=== PATIENT | male | born 1975 | race African-American/Black ===

== ENCOUNTER 2019-09-02 18:07 | Emergency (ER) | payer OTHER ==
[~2019-09-02] VITALS: Ht 180.3 cm; Wt 83.9 kg
[2019-09-02] MEDS ORDERED: GLIPIZIDE 10 MG10 MG PO (18:39)
[2019-09-02] MEDS ORDERED: DORYX MPC120 MG PO (18:41)
[2019-09-02] MEDS ORDERED: GLUCOPHAGE1000 MG PO (18:42)
[2019-09-02] MEDS ORDERED: ZOFRAN ODT4 MG PO (21:08)
[2019-09-02 21:20] VITALS: BP 140/97
== END 2019-09-02 21:20 | disposition home or self-care (01) ==
LOC: ER 18:07
DX: J18.9 Pneumonia, unspecified organism (principal); E11.9 Type 2 diabetes mellitus without complications

== ENCOUNTER 2019-09-26 12:16 | Inpatient (IN) | payer OTHER ==
[~2019-09-26] VITALS: Ht 180.3 cm; Wt 83.2 kg
--- NOTE | ~2019-09-26 | HC ---
[facility] [place] [address] [place] [address] CONSULTATION Name: TOD RODRIGUEZ Room #: 350-P ADM IN M.R.#: [id number] Admission: 09/26/19 Attend Phys: Juan M Johnston MD Discharge: Date of : 79 Report #: [id number] THIS REPORT FOR: cc: MARISEL LAMA - Family physician unknown Ana Grover MD ~ CC: Juan M ARTEAGA unknown MARISEL LAMA DATE OF SERVICE: 09/28/2019 REASON FOR CONSULTATION: Elevated potassium, hyponatremia. REASON FOR PRESENTATION: Swelling, progressive shortness of breath, elevated blood sugar. HISTORY OF PRESENT ILLNESS: This is a 44-year-old with past medical history of diabetes mellitus for some time. He is also known to have hypertension. He presented with significant bilateral lower extremity swelling, worsening blood sugar reading, worsening dyspnea on exertion. He was found to have hyponatremia with hyperkalemia and significantly elevated blood sugar. He is not aware of any prior knowledge of kidney problems. He was diagnosed with diabetes mellitus 10 years ago. It looks like there is an issue of noncompliance. He suffers from hidradenitis that is following a course of waxing and waning course. He has required some drainage in the past. I am being consulted to manage the patient electrolyte issues. He has been taking some ibuprofen recently. He is maintained on doxycycline for his hidradenitis. PAST MEDICAL HISTORY: 1. Hidradenitis. 2. Diabetes mellitus. ALLERGIES: None. SOCIAL HISTORY: Denies drug or alcohol abuse. REVIEW OF SYSTEMS: GENERAL: Significant for weakness. No fever or chills. CARDIOVASCULAR: Dyspnea on exertion and swelling. PULMONARY: Dyspnea on exertion. GASTROINTESTINAL: No nausea or vomiting. GENITOURINARY: No frequency, no urgency. SKIN: As per the history of present illness. FAMILY HISTORY: Significant for diabetes. [facility] [address] [place] [address] CONSULTATION Name: TOD RODRIGUEZ Room #: 350-P [facility] IN .R.#: [id number] Admission: 09/26/19 Attend Phys: Juan M Johnston MD Discharge: Date of : 79 Report #: [id number] MEDICATIONS: 1. Metformin. 2. Glipizide. 3. Furosemide. PHYSICAL EXAMINATION: He is alert, oriented, in no apparent distress. VITAL SIGNS: Blood pressure is 112/79, temperature 36.5. HEAD AND NECK: No jugular venous distention. CHEST: No crackles. CARDIOVASCULAR: No rub detected. ABDOMEN: Soft, nontender. LOWER EXTREMITIES: Extensive edema. Gluteal areas extensive hidradenitis and thickening. LABORATORY DATA: Reviewed. White blood cell count is 20. Chemistry from today revealed a sodium of 130, BUN of 34, creatinine of 1.3. Serum albumin is 2.0. Renal ultrasound is negative. ASSESSMENT, IMPRESSION AND PLAN: 1. Hyponatremia. 2. Hyperkalemia. 3. Fluid overload. 4. Uncontrolled diabetes mellitus. 5. We will continue with the Lasix for now. 6. His pseudohyponatremia was due to his high blood sugar. His hyperkalemia had resolved. Ultimately, we will need to be on an angiotensin receptor juan miguel and a thiazide diuretic. The patient fluid overload is unlikely to be due to diabetic nephropathy given the urine finding. Pending cardiac echo. By: 0817 0849 Ana Grover MD /nt
--- NOTE | ~2019-09-26 | HC ---
[facility] [place] [address] [place] [address] CONSULTATION Name: TOD RODRIGUEZ Room #: 350-P ADM IN M.R.#: [id number] Admission: 09/26/19 Attend Phys: Juan M Johnston MD Discharge: Date of : 79 Report #: [id number] THIS REPORT FOR: cc: MARISEL LAMA - Family physician unknown Zeeshan Johnson MD ~ CC: Juan M ARTEAGA unknown MARISEL LAMA DATE OF SERVICE: 09/27/2019 WOUND CARE CONSULT NOTE REASON FOR CONSULTATION: Hidradenitis of right and left hip with draining pus. 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 He has had progressive shortness of breath for the past few months. He smokes about a pack of cigarettes a day. The patient is diabetic, but does not check his blood sugars. Laboratories show white blood count of 14.7 yesterday and 19.2 today. Blood glucose elevated greater than 500 today. The patient has a history of hidradenitis of the hips and buttocks with multiple excisions in the past. The patient states that an area of hidradenitis of the right hip is sore with some drainage and on his left hip a larger area, which is more sore, draining more pus. Wound care is consulted due to his hidradenitis wound. MEDICAL PROBLEMS: Diabetes mellitus type 2; atypical pneumonia, actively being treated now; congestive heart failure; hyperglycemia; chronic hidradenitis. ALLERGIES: No known drug allergies. MEDICATIONS: The patient is currently on IV ceftriaxone, Lasix, Humulin insulin, albuterol, Coreg, Humalog insulin, lisinopril, Zofran, hydrocodone. SOCIAL HISTORY: The patient is a 1 pack a day smoker. PAST SURGICAL HISTORY: Multiple surgeries for hidradenitis excision of the hips and buttocks. PHYSICAL EXAMINATION: GENERAL: Shows a well-appearing -Ukrainian gentleman, middle aged, alert, pleasant, good historian. HEENT: Mucous membranes are moist. NECK: Supple. [facility] [address] [place] [address] CONSULTATION Name: TOD RODRIGUEZ Room #: 350-P ADM IN M.R.#: [id number] Admission: 09/26/19 Attend Phys: Juan M Johnston MD Discharge: Date of : 79 Report #: [id number] LUNGS: Respirations unlabored. ABDOMEN: Soft. EXTREMITIES: Examination of the extremities shows scars and indurations of his right and left medial buttock from hidradenitis and prior surgery. Examination of the right lateral hip shows a 5 cm x 2 cm area with slight induration consistent with hidradenitis, very slight amount of pus drained from this area and is slightly tender. Examination of the left hip shows a larger 2 x 7 cm area with slightly raised with induration, chronic hidradenitis, slight pressure on this area resulted in a large amount of yellowish white pus draining. Wound cultures are ordered. Consistent with hidradenitis with abscess. IMPRESSION: 1. Diabetes mellitus type 2, uncontrolled with hyperglycemia. 2. Active pneumonia. 3. Tobaccoism. 4. Acute on chronic hidradenitis with abscessed area of hidradenitis, left hip. PLAN: Wound cultures ordered of purulent drainage of the left hip. Continue ceftriaxone. General surgeon, Dr. Berlin Hoover, consulted for management of hidradenitis, left hip with abscess. By: 0827 [id number] Zeeshan Johnson MD /nt
[~2019-09-26 12:16] MED LIST: DORYX MPC120 MG PO; GLIPIZIDE 10 MG10 MG PO; GLUCOPHAGE1000 MG PO; ZOFRAN ODT4 MG PO
[2019-09-26 12:17] VITALS: BP 155/105
[2019-09-26] MEDS ORDERED: LASIX 40 MG TAB40 MG PO (12:37)
[2019-09-26 13:05] LABS: ABSOLUTE NEUTROPHILS 11.6 thou/uL (1.4-8.2); BASOPHILS 0.6 % (0.0-2.0); EOSINOPHILS 0.5 % (0.0-3.0); HEMATOCRIT 38.4 % (42.0-52.0); LYMPHOCYTES 14.2 % (24.0-44.0); MCH 21.8 pg (26.0-34.0); MCHC 31.2 g/dL (28.0-37.0); MCV 69.7 fL (80.0-100.0); MONOCYTES 5.8 % (1.0-8.0); PLATELET COUNT 371 thou/uL (150-400); POLYS 78.9 % (36.0-66.0); RBC 5.51 mil/uL (4.50-6.00); RDW 19.4 % (10.5-14.5); WBC 14.7 thou/uL (4.0-11.0)
[2019-09-26 13:27] LABS: ANION GAP 6 mmol/L (7-16); BUN 12 mg/dL (7-18); CALCIUM 8.6 mg/dL (8.5-10.1); CHLORIDE 96 mmol/L (98-107); CO2 29 mmol/L (21-32); CREATININE 1.1 mg/dL (0.7-1.3); GLUCOSE 492 mg/dL (74-106); POTASSIUM 4.5 mmol/L (3.5-5.1); SODIUM 131 mmol/L (136-145)
[2019-09-26 13:37] LABS: SGOT 21 U/L (15-37); SGPT 30 U/L (30-65); TOTAL BILIRUBIN 0.3 mg/dL (<0.1-1.0); TROPONIN-I <0.06 ng/mL (<0.06)
[2019-09-26 14:30] VITALS: BP 158/102
--- NOTE | 2019-09-26 14:31 | NUR ---
HAND OFF REPORT SENT TO [facility]W. TELEPHONED THE FLOOR AT THIS TIME TO LET THEM KNOW THAT HANDOFF WAS SENT.
[2019-09-26 15:30] VITALS: BP 138/93
[2019-09-26 15:44] LABS: CHOLESTEROL 122 mg/dL (<200); HDL CHOLESTEROL 41 mg/dL (>40); LDL CHOLESTEROL 69 mg/dL (<100); TRIGLYCERIDE 61 mg/dL (<150); VLDL 12 mg/dL (<40)
[2019-09-26 15:59] LABS: FOLIC ACID 11.7 ng/mL (8.6-58.9); TSH 1.533 uIU/mL (0.358-3.740)
[2019-09-26 17:04] VITALS: BP 138/93
[2019-09-26] MEDS ORDERED: FERROUS SULFAT325 MG PO (17:10)
[2019-09-26 19:45] VITALS: BP 121/86
[2019-09-26 23:45] VITALS: BP 128/86
[2019-09-27 03:45] VITALS: BP 124/82
[2019-09-27 05:58] LABS: HEMATOCRIT 37.4 % (42.0-52.0); HEMOGLOBIN 11.1 gm/dL (14.0-18.0); MCHC 29.7 g/dL (28.0-37.0); MCV 70.9 fL (80.0-100.0); RBC 5.28 mil/uL (4.50-6.00); RDW 19.8 % (10.5-14.5); WBC 19.2 thou/uL (4.0-11.0)
[2019-09-27 06:17] LABS: CALCIUM 7.6 mg/dL (8.5-10.1); CREATININE 1.4 mg/dL (0.7-1.3)
[2019-09-27 07:25] VITALS: BP 139/92
[2019-09-27 07:58] LABS: URINE BILIRUBIN NEGATIVE (Negative); URINE BLOOD TRACE (Negative); URINE CLARITY CLEAR; URINE COLOR YELLOW; URINE GLUCOSE-RANDOM* 3+ (Negative); URINE KETONES NEGATIVE (Negative); URINE LEUKOCYTES NEGATIVE (Negative); URINE NITRITE NEGATIVE (Negative); URINE PROTEIN (DIPSTICK) NEGATIVE (Negative); URINE UROBILINOGEN 0.2 E.U./dl (0.2-1.0)
[2019-09-27 08:09] LABS: URINE PROTEIN-RANDOM* 20.2 mg/dL (<11.9)
[2019-09-27 08:53] LABS: POTASSIUM 4.7 mmol/L (3.5-5.1)
[2019-09-27 12:07] VITALS: BP 120/81
[2019-09-27 15:40] VITALS: BP 121/81
[2019-09-27 20:10] VITALS: BP 107/74
--- NOTE | 2019-09-27 20:49 | NUR ---
RECEIVED PT'S CARE AROUND 0710; PT. ON BED; A0X4; ON INSULIN GTT; CHEMISTRY TEACHER PAGED; DURING AM ASSESSMENT EDUCATED ABOUT THE NEED OF NEW IV & BLOO WITHDRAW Q1H UNTIL BS BELOW 500 DUE TO GLUCOMETER DOES NOT SHOW EXACTLY NUMBER ABOVE 500; REFUSED SECOND IV; REFUSED ANTIBIOTIC; ST. "WHY YOU CAN JUST GIVE A SHOT THEY WERE DOING BEFORE"; EDUCATED ABOUT ELEVATED BLOOD SUGAR & INSULIN GTT; TITRATION PROTOCOL; AT THE BED SIDE; EDUCATED ABOUT THE IMPORTANCE OF TREATMENT; ST. UNDERSTANDING; AFTER TALKING WITH PT. HE AGREED TO SECOND IV AND ANTIBIOTIC WELL BLOOD SUGARS Q1H; AM MEDICATION GIVEN; REMAINED ABOUT THE NEED OF CHECKING BLOOD SUGAR Q1H; AGREED WITH IT; EARLY BS 660; PHYSICIAN NOTIFIED; ENCONCRINOLOGIST NOTIFIED; PER CHEMISTRY TEACHER HOLD SUBQ INSULIN; PHYSICIAN NOTIFIED; NO NEW ORDERS; INSULIN TYTRATE PER PROTOCOL; AROUND 1600 ENDOCRINOLOGYST PAGED; UPDATE ON BS; 142; ORDERS RECEIVED; PT. NOTIFIED; CULTURE COLLECTED; PT. TAKEN TO CT; THROUGH THE DAY C/O PAIN; PRN PAIN MEDICATION GIVEN; SR ON THE MONITOR; ASSESSMENT CHARGED; FOLLOWING POC; PASSED ON REPORT;
[2019-09-28 00:06] LABS: GLYCOHEMOGLOBIN (HGB A1C) 11.4 % (4.8-5.6)
[2019-09-28 05:13] LABS: HEMATOCRIT 39.1 % (42.0-52.0); HEMOGLOBIN 12.1 gm/dL (14.0-18.0); MCH 21.7 pg (26.0-34.0); MCHC 30.9 g/dL (28.0-37.0); MCV 70.1 fL (80.0-100.0); RBC 5.58 mil/uL (4.50-6.00); RDW 19.1 % (10.5-14.5); WBC 20.8 thou/uL (4.0-11.0)
[2019-09-28 05:33] LABS: CALCIUM 8.7 mg/dL (8.5-10.1); CREATININE 1.3 mg/dL (0.7-1.3); MAGNESIUM 2.1 mg/dL (1.8-2.4); PHOSPHORUS 5.2 mg/dL (2.5-4.9); POTASSIUM 4.5 mmol/L (3.5-5.1); TOTAL BILIRUBIN 0.2 mg/dL (<0.1-1.0); TOTAL PROTEIN 7.9 g/dL (6.4-8.2)
[2019-09-28 06:10] VITALS: BP 110/74
[2019-09-28 07:04] VITALS: BP 112/79
--- NOTE | 2019-09-28 10:36 | 2DMMODE ---
[facility] [place] [place] [address] 2 D/M-MODE ECHOCARDIOGRAM Name: TOD RODRIGUEZ Room #: 350-P ADM IN M.R.#: [id number] Admission: 09/26/19 Attend Phys: Juan M Johnston MD Discharge: Date of : 77 Report #: [id number] THIS REPORT FOR: cc: MARISEL LAMA - Family physician unknown Rom Currie MD [facility] ~ APPROVED REPORT Study performed: 09/27/2019 10:11:56 EXAM: Comprehensive 2D, Doppler, and color-flow Echocardiogram Patient Location: Bedside Room #: 350 Status: on-call BSA: 2.02 HR: 88 bpm BP: 139/92 mmHg Rhythm: NSR Other Information Study Quality: Good Risk Factors: Cardiac Risk Factors: HTN, DM, Smoking Indications Congestive Heart Failure Dyspnea 2D Dimensions IVSd: 10.43 (7-11mm) LVOT Diam: 2.00 (18-24mm) LVDd: 55.17 mm PWd: 9.78 (7-11mm) Ascending Ao: 30.31 (22-36mm) LVDs: 43.55 (25-40mm) Aortic Root: 27.72 mm LV Single Plane 4CH: 41.23 % LV Single Plane 2CH: 38.02 % Biplane EF: 40.6 % Volumes Left Atrial Volume (Systole) Single Plane 4CH: 56.79 mL Single Plane 2CH: 50.73 mL LA ESV Index: 29.00 mL/m2 [facility] [address] [place] [address] 2 D/M-MODE ECHOCARDIOGRAM Name: TOD RODRIGUEZ Room #: 350-P ADM IN M.R.#: [id number] Admission: 09/26/19 Attend Phys: Juan M Johnston MD Discharge: Date of : 79 Report #: [id number] Aortic Valve AoV Peak Luca.: 1.26 m/s AO Peak Gr.: 6.32 mmHg LVOT Max P.71 mmHg LVOT Max V: 0.82 m/s STEPHEN Vmax: 1.97 cm2 Mitral Valve E/A Ratio: 1.6 MV Decel. Time: 135.08 ms MV E Max Luca.: 1.01 m/s MV A Luca.: 0.64 m/s MV PHT: 39.17 ms IVRT: 58.82 ms TDI E/Lateral E': 10.10 E/Medial E': 11.22 Medial E' Luca.: 0.09 m/s Lateral E' Luca.: 0.10 m/s Pulmonary Valve PV Peak Luca.: 0.93 m/s PV Peak Gr.: 3.44 mmHg TN End Vmax: 1.18 m/s Pulmonary Vein P Vein S: 0.45 m/s P Vein A: 0.23 m/s P Vein D: 0.67 m/s P Vein A Dur.: 96.9 msec P Vein S/D Ratio: 0.67 Tricuspid Valve TR Peak Luca.: 2.69 m/s RAP Estimate: 10.00 mmHg TR Peak Gr.: 29.01 mmHg PA Pressure: 39.00 mmHg Left Ventricle The left ventricle is normal size. There is global hypokinesis of the left ventricle. There is normal left ventricular wall thickness. Left ventricular systolic function is moderately decreased. LVEF is 40%. The left ventricular diastolic function is normal. Right Ventricle Right ventricle is dilated. Right ventricular systolic function is reduced. Atria The left atrium size is normal. Right atrium is dilated. [facility] [address] [place] [address] 2 D/M-MODE ECHOCARDIOGRAM Name: TOD RODRIGUEZ Room #: 350-P [facility] IN M.R.#: [id number] Admission: 09/26/19 Attend Phys: Juan M Johnston MD Discharge: Date of : 79 Report #: [id number] Aortic Valve The aortic valve is normal in structure. Trace aortic regurgitation. There is no aortic valvular stenosis. Mitral Valve The mitral valve is normal in structure. Mild mitral regurgitation. No evidence of mitral valve stenosis. Tricuspid Valve The tricuspid valve is normal in structure. Mild to moderate tricuspid regurgitation. Pulmonary artery pressure is 39 mmHg. Pulmonic Valve The pulmonary valve is normal in structure. Moderate pulmonic regurgitation. Great Vessels The aortic root is normal in size. The ascending aorta is normal in size. IVC is dilated and collapses >50% with inspiration. Pericardium There is no pericardial effusion. <Conclusion> The left ventricle is normal size. Left ventricular systolic function is moderately decreased. There is global hypokinesis of the left ventricle. LVEF is 40%. The left ventricular diastolic function is normal. Right ventricle is dilated. Right ventricular systolic function is reduced. Right atrium is dilated. Trace aortic regurgitation. Mild mitral regurgitation. Mild to moderate tricuspid regurgitation. Pulmonary artery pressure is 39 mmHg. The aortic root is normal in size. There is no pericardial effusion. <ELECTRONICALLY SIGNED> By: Rom Currie MD, FACC 09/28/19 1035 1035 1035 Rom Currie MD, FACC /INF
--- NOTE | 2019-09-28 11:48 | HC ---
[facility] [place] [place] [address] CONSULTATION Name: TOD RODRIGUEZ Room #: 350-P ADM IN M.R.#: [id number] Admission: 09/26/19 Attend Phys: Juan M Johnston MD Discharge: Date of : 77 Report #: [id number] THIS REPORT FOR: cc: MARISEL LAMA - Family physician unknown Mir Cifuentes MD ~ CC: Juan M ARTEAGA unknown MARISEL LAMA DATE OF SERVICE: 09/27/2019 ENDOCRINE CONSULTATION NOTE CONSULTING PHYSICIAN: Dr. Motta. REASON FOR CONSULTATION: Uncontrolled type 2 diabetes mellitus. HISTORY OF PRESENT ILLNESS: This is a 44-year-old male patient whose medical background is primarily significant for type 2 diabetes mellitus. The patient has been diagnosed with diabetes over 10 years ago and is maintained on a regimen of metformin 1000 mg b.i.d. as well as glipizide 10 mg daily. The patient acknowledges that he has not monitored blood glucose at all over the past several months and is not aware of any hemoglobin A1c that was done in the recent past either. The patient notes progressive issues with shortness of breath, lower extremity swelling mounting over the past 2 months to where he decided to present last night and was admitted further for monitoring and management as he was noted to have cardiomegaly and diffuse pulmonary infiltrate on his initial imaging studies. On arrival, the patient was found to have severe hyperglycemia at 410 mg/dL and later this morning he was found to have a blood glucose of 660 mg/dL, which prompted the use of intravenous insulin therapy. The patient is not aware of issues pertaining to diabetic retinopathy or nephropathy. He acknowledges intermittent occurrences of peripheral numbness, tingling and altered sensation, but is not aware of a formal diagnosis of diabetic neuropathy. He is not aware of a cardiac anomaly including coronary artery disease or congestive heart failure in the past. The patient is not on any other active medications at home either. REVIEW OF SYSTEMS: CONSTITUTIONAL: Fatigue, tiredness, but not fever or chills or body weight changes. HEENT: Negative for sore throat, sinus pain, ear drainage. [facility] [address] [place] [address] CONSULTATION Name: JENNIFERTOD Room #: 350-P [facility] IN M.R.#: [id number] Admission: 09/26/19 Attend Phys: Juan M Johnston MD Discharge: Date of : 77 Report #: [id number] PULMONARY: Shortness of breath, dyspnea on exertion, orthopnea, but no cough or hemoptysis. CARDIAC: Lower extremity swelling, dyspnea on exertion. No chest pain or palpitations or syncope. GASTROINTESTINAL: Abdominal distention, abdominal discomfort. No nausea or vomiting. NEUROLOGY: Negative for loss of consciousness, seizure activity. Noted for intermittent peripheral numbness and tingling. UROLOGY: Negative for dysuria, hematuria, or frequency changes. SKIN: Negative for rash, ulceration or itching. Otherwise, review of systems noncontributory unless mentioned in HPI. PAST MEDICAL HISTORY: Type 2 diabetes mellitus. ACTIVE MEDICATIONS: Glipizide 10 mg daily, metformin 1000 mg b.i.d. ALLERGIES: No known drug allergies. FAMILY HISTORY: Noncontributory. 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 PHYSICAL EXAMINATION: GENERAL: -Hungarian male patient who is not in apparent pain or distress. VITAL SIGNS: Blood pressure is 120/81, heart rate is 84 beats per minute, respirations 15 per minute, temperature 36.8 degrees Celsius. CONSTITUTIONAL: The patient is lying in bed, appears comfortable, not in pain or distress. HEENT: Anicteric sclerae. Intact extraocular motions. NECK: Supple, without JVD, carotid bruits or lymphadenopathy. I do not appreciate thyromegaly. CHEST: Noted for moderate entry bilaterally with scattered rales and rhonchi. No wheezes. HEART: Regular rate and rhythm without murmurs or gallops. ABDOMEN: Soft, lax, no tenderness, no guarding. Active bowel sounds. EXTREMITIES: Lower extremity exam, trace ankle edema bilaterally. Pedal pulses are appreciated. Sensation to light touch is moderately diminished. NEUROLOGIC: Awake, alert and oriented to time, place and person. The rest of his exam is nonfocal other than for limited sensory deficit over both lower extremities. PSYCHIATRIC: Pleasant, interactive. Normal mood and affect. LABORATORY DATA: Blood glucose data as noted in HPI. Potassium 4.7, sodium 127, chloride 96, CO2 of 23, anion gap 8, BUN 28, creatinine 1.4, AST 21, total bilirubin 0.3, calcium 7.6, alkaline phosphatase 258, ALT 30, total protein 8, [address] [address] CONSULTATION Name: TOD RODRIGUEZ Room #: 350-P [facility] IN M.R.#: [id number] Admission: 09/26/19 Attend Phys: Juan M Johnston MD Discharge: Date of : 79 Report #: [id number] albumin 2.0. EGFR 67. Lactic acid 1.7. Troponin is negative. Total cholesterol 122. Triglycerides 61, HDL 41, LDL 69. BNP 5335. White blood count 19.2, hemoglobin 11.1, hematocrit 37.4, platelets 350. Hemoglobin A1c is processing. A chest x-ray was done earlier today and is noted for cardiomegaly, mild widespread bilateral interstitial infiltration. A CT scan of the pelvis was ordered, but is pending. ASSESSMENT AND PLAN: 1. Type 2 diabetes mellitus. The patient has had longstanding type 2 diabetes mellitus, but we do not have any recent objective assessment whether in the form of home based blood glucose data or hemoglobin A1c. The patient was counseled at length about the importance of achieving and maintaining adequate glycemic control to avoid diabetic complications. The patient presented under conditions of severe hyperglycemia that worsened shortly after his arrival, which prompted the appropriate response of intravenous insulin therapy. The patient is currently receiving intravenous insulin as per the [facility] IV insulin protocol and has shown an appropriate and progressive improvement in his glycemic control. The most recent blood glucose value prior to this dictation was down to 212 mg/dL. I had a lengthy discussion with supervising nurse and I reviewed his intravenous insulin log and blood glucose progression. I believe it would be prudent to revisit his complete metabolic panel later today to ensure the correction of his associated metabolic abnormalities including renal insufficiency and hyponatremia. If deemed stable at that point in time, the patient might be transitioned to subcutaneous insulin therapy. 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 Definitive therapeutic recommendations for the outpatient setting will depend on his course over the next few days as well as his pending hemoglobin A1c. In the immediate setting, the patient is to be maintained on IV insulin therapy as per protocol and to maintain hourly blood glucose monitoring and adjust as necessary as well as include dextrose 10 in his fluids should he approached 200 mg/dL or less. 2. Hyponatremia at 127. This is likely pseudohyponatremia. This will be evaluated again later today in view of his improving blood glucose control. 3. Congestive heart failure. The patient presented in a picture of congestive heart failure, which seems to be acute on chronic heart failure associated with weight gain. He is being managed with IV Lasix [address] Currie is following closely. 4. Pneumonia. The patient has chest x-ray features leukocytosis of atypical pneumonia and is currently maintained on albuterol as well as ceftriaxone and clindamycin. Further management is as per the primary hospital team. [address] [address] CONSULTATION Name: TOD RODRIGUEZ Room #: 350-P [facility] IN M.R.#: [id number] Admission: 09/26/19 Attend Phys: Juan M Johnston MD Discharge: Date of : 79 Report #: [id number] I certainly appreciate this consultation by Dr. Motta. <ELECTRONICALLY SIGNED> By: Mir Cifuentes MD 09/28/19 1148 1328 2149 Mir Cifuentes MD /nt
[2019-09-28 15:11] VITALS: BP 106/74
--- NOTE | 2019-09-28 18:30 | NUR ---
PATIENT RESTED IN ROOM THROUGH THE DAY. HE IS ALERT ORIENTED X4. CONT ON ABT AND NO ADVERSE EFFECTS NOTED. HE IS PLEASANT WITH CARES. UP AD KONSTANTIN IN ROOM. WILL CONT WITH PLAN OF CARES.
[2019-09-28 20:10] VITALS: BP 124/91
[2019-09-29] VITALS (12 sets, daily range): BP systolic 114–146; BP diastolic 62–101
--- NOTE | 2019-09-29 03:52 | NUR ---
Patient making slow progress towards outcome goals. Vital signs and rhythm stable. Up adlib without difficulty. NPO after MN for heart cath. Consent signed by patient who verbalized understanding of procedure and offers no question at this time.
[2019-09-29 05:40] LABS: MCH 21.4 pg (26.0-34.0); MCHC 30.5 g/dL (28.0-37.0); MCV 70.3 fL (80.0-100.0); RBC 5.12 mil/uL (4.50-6.00); RDW 19.5 % (10.5-14.5)
[2019-09-29 05:58] LABS: ALBUMIN 1.6 g/dL (3.4-5.0); CALCIUM 7.8 mg/dL (8.5-10.1); CREATININE 1.2 mg/dL (0.7-1.3); PHOSPHORUS 4.3 mg/dL (2.5-4.9)
[2019-09-29 06:10] LABS: APTT 27.9 Seconds (24.5-32.8)
--- NOTE | 2019-09-29 08:03 | EKG ---
[facility] [place] [address] [place] [address] ELECTROCARDIOGRAM REPORT Name: TOD RODRIGUEZ Room #: 350-P ADM IN M.R.#: [id number] Admission: 09/26/19 Attend Phys: Juan M Johnston MD Discharge: Date of : 79 Report #: [id number] THIS REPORT FOR: cc: MARISEL LAMA - Family physician unknown Ramirez Medellin MD [facility] ~ THIS REPORT FOR: //name// [facility] ED Test Date: 2019-09-26 Test Time: 13:00:34 Pat Name: TOD RODRIGUEZ Department: Room: 350 Gender: M [employer] Technician: ALISON : 1975 Requested By: Ruth Forrester Order Number: [id number] MD: Ramirez Medellin Measurements Intervals Citra Rate: 105 P: 51 HI: 139 QRS: -9 QRSD: 103 T: 164 QT: 361 QTc: 478 Interpretive Statements Sinus tachycardia RSR' in V1 or V2, right VCD Abnormal T, consider ischemia, lateral leads Baseline wander in lead(s) V1,V5 No previous ECG available for comparison Electronically Signed On 09-29-2019 8:01:56 CDT by Ramirez Medellin [email or web address] <ELECTRONICALLY SIGNED> By: Ramirez Medellin MD, FAC 09/29/19 0801 1300 1300 Ramirez Medellin MD, [facility] /EPI
--- NOTE | 2019-09-29 12:27 | NUR ---
PT REPORTS HIP PAIN AND MEDICATED WITH NORCO WITH FAIRLY GOOD RELIEF OBTAINED..
--- NOTE | 2019-09-29 13:17 | NUR ---
INITIAL ASSESSMENT: SW reviewed chart and spoke with nursing and attending physician. Pt was admitted from home due to atypical pneumonia/HTN/hyperglycemia. Pt with hx of DM type 2. Pt with left hip abscess. Pt to have cardiac cath today and then will transfer to CCU. SW met with pt and family at bedside. Introduced role of SW. Pt is alert/orientated x 4. Pt reports he lives at home with family. Prior to admission, pt was independent with ADLs. No use of DME. Pt's PCP is Dr. Santa Wilcox. ID/wound/surgery/cardio/endocrinology consulted and following. Plan is for pt to discharge home when medically stable. SW is following to assist as needed with discharge planning.
--- NOTE | 2019-09-29 17:21 | CATHLAB ---
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 A Right Heart Catheterization was performed with a 7 Fr. Ridgeway-Dustin catheter and pressure were recorded. Cardiac outputs were obtained by the Thermal Dilution method. A PINNACLE 6FR Sheath #[id number] sheath was inserted into the RFA^. Coronary angiography was performed using coronary diagnostic catheters. The right coronary system was accessed and visualized with a JR4 catheter. The left coronary system was accessed and visualized with a JL4 catheter. The left ventricle was accessed and visualized with a PIGTAIL catheter. Left ventriculogram was performed in 30 degree projection. An aortogram of the abdominal aorta was performed. Pre-demployment femoral angiogram was performed . Closure device was deployed with a 6 Fr MYNXGRIP 6/7F #[id number]. Hemostasis was obtained with manual pressure following sheath removal without any complications. The patient tolerated the procedure well and there were no complications [facility] [address] [place] [address] INVASIVE PROCEDURE REPORT Name: TOD RODRIGUEZ Room #: 207-P [facility] IN ..#: [id number] Admission: 09/26/19 Attend Phys: Juan M Johnston MD Discharge: Date of : 79 Report #: [id number] associated with the procedure. There was no hematoma. Intraoperative Conscious Sedation Sedation start time: 1438 Case end Time: 1514 Fentanyl 100 mcg Versed 2 mg Fluoro Time: 4.12 minutes Dose: DAP 3186.60 cGycm2 296 mGy Contrast Type and Amount: Omnipaque 105 ml Hemodynamics The right atrial mean pressure is 15 mmHg. The right ventricular pressure is 66/11 mmHg. The pulmonary artery pressure is 69/32 mmHg with a mean of 49 mmHg. The mean pulmonary capillary wedge pressure is 34 mmHg. The left ventricular pressure is 117/8 mmHg with a mean of mmHg. The left ventricular end diastolic pressure is 31 mmHg. The cardiac output using thermo method is 3.17 L/min. The cardiac index using thermo method is 1.55 L/min/m2. Conclusion #1. Mildly dilated left ventricle with moderate global hypokinesis EF 20 to 25% range #2 successful right heart catheterization. See above hemodynamic significant elevation of pulmonary artery pressure and pulmonary capillary wedge pressure #3 normal coronary anatomy in a right dominant system. No occlusive disease. #4 abdominal aortogram revealing normal caliber abdominal aorta no aneurysm or renal artery stenosis Recommendations and plan: This appears to be either a nonischemic or possibly alcoholic cardiomyopathy. Presumably idiopathic in nature. Significant volume overload still exist with market diminishing cardiac output and cardiac index. Aggressive risk factor modification fluid sodium restriction and appropriate medications. Transfer back to CCU for further diuresis and up titration of medications. <ELECTRONICALLY SIGNED> By: Rom Currie MD, FACC 09/29/191719 19 19 Rom Currie MD, FACC /INF
--- NOTE | 2019-09-29 19:13 | NUR ---
PATIENT ARRIVED FROM CATHLAB AT 1545, ALERT AND ORIENTED. RT GRION SITE D/C/I. VSS AND SR ON THE MONITOR. ASSESSMENT DOCUMENTED, AND WILL CONTINUE WITH POC.
--- NOTE | 2019-09-29 22:39 | NUR ---
A/O X 4.COMPLAIN OF BILATERAL HIP PAIN.PAIN PILL GIVEN.OFF BEDREST.RIGHT GROIN C/D/I.REFUSED LOVENOX EVEN AFTER EDUCATING PATIENT.MONITOR SHOWS SR.POC CONTINUED.
[2019-09-30 01:33] LABS: HEMATOCRIT 39.6 % (42.0-52.0); HEMOGLOBIN 12.1 gm/dL (14.0-18.0); MCH 21.4 pg (26.0-34.0); MCHC 30.6 g/dL (28.0-37.0); MCV 69.9 fL (80.0-100.0); RBC 5.66 mil/uL (4.50-6.00); RDW 19.6 % (10.5-14.5); WBC 11.5 thou/uL (4.0-11.0)
[2019-09-30 04:20] VITALS: BP 123/80
[2019-09-30 07:35] VITALS: BP 127/88
[2019-09-30 08:08] LABS: HIV ANTIBODY Non Reactive (Non Reactive)
[2019-09-30 08:14] LABS: ALBUMIN 1.9 g/dL (3.4-5.0); CREATININE 1.2 mg/dL (0.7-1.3); POTASSIUM 4.6 mmol/L (3.5-5.1); TOTAL BILIRUBIN 0.2 mg/dL (<0.1-1.0); TOTAL PROTEIN 6.5 g/dL (6.4-8.2)
[2019-09-30] MEDS ORDERED: AUGMENTIN 875-1 EACH PO (08:14)
[2019-09-30] MEDS ORDERED: CARVEDILOL12.5 MG PO (08:14)
[2019-09-30] MEDS ORDERED: ASPIR 8181 MG PO (08:14)
[2019-09-30] MEDS ORDERED: BENICAR40 MG PO (08:14)
[2019-09-30] MEDS ORDERED: TORSEMIDE20 MG PO (08:15)
[2019-09-30 11:25] VITALS: BP 114/76
[2019-09-30 15:50] VITALS: BP 104/67
--- NOTE | 2019-09-30 15:56 | NUR ---
TOMAS reviewed chart and spoke with nursing and attending physician. Pt was transferred to CCU from 3W yesterday after cardiac cath. Discharge home with HH for wound care is anticipated for tomorrow. TOMAS met with pt at bedside to discuss discharge plan. Pt declines need for HH services at this time. Pt states he should be able to manage his own wound care needs. TOMAS updated pt's nurse and attending physician. TOMAS is following to assist as needed with discharge planning.
--- NOTE | 2019-09-30 18:09 | NUR ---
ASSESSMENT CHARTED. PT RECEIVED PRN PAIN MED WITH PARTIAL RELIEF. NSR ON TELE. NO CONCERNS AT THIS TIME. WILL CONTINUE TO MONITOR.
[2019-09-30 20:00] VITALS: BP 127/77
[2019-09-30 20:22] VITALS: BP 127/77
--- NOTE | 2019-10-01 02:23 | NUR ---
ASSUMED PT CARE AROUND 1930. AXOX4. INDEPENDENT WITH ADLs. VSS. NO S/S ACUTE DISTRESS NOTED OR REPORTED AT THIS TIME. WILL CONT TO MONITOR FOR ANY CHANGES IN CONDITION.
[2019-10-01 04:18] VITALS: BP 133/96
[2019-10-01 07:30] VITALS: BP 135/90
[2019-10-01] MEDS ORDERED: ULTRAM50 MG PO (09:24)
[2019-10-01 10:12] VITALS: BP 135/90
--- NOTE | 2019-10-01 11:15 | NUR ---
ASSESSMENT CHARTED. PT ALERT AND ORIENTED. VSS. RECEIVED PRN PAIN MED WITH PARTIAL RELIEF. NSR ON TELE. ORDERS GIVEN TO DISCHARGE PT TO HOME. DISCHARGE INSTRUCTIONS GIVEN TO PT. PT VERBERLISED UNDERSTANDING.
--- NOTE | 2019-10-01 11:53 | NUR ---
DISCHARGE NOTE: SW reviewed chart and spoke with nursing and attending physician. Pt is medically stable for discharge home today. Pt declined services. Pt was discharged home prior to SW visit. Pt's family provided transportation home. No SW needs identified at this time. Case closed.
== END 2019-10-01 11:18 | disposition home or self-care (01) | DRG 286 ==
LOC: ER 12:16 → EROBS 14:31 → 2N 14:31 → 3W 14:31 → 2N 09-29 15:46
PROVIDERS: Hospitalist; Internal Medicine Cardiovascular Disease; Nurse Practitioner Adult Health; Nurse Practitioner Family; ADMIT Hospitalist
PROC: B2111ZZ Fluoroscopy of Multiple Coronary Arteries using Low Osmolar Contrast (ICD-10-PCS; principal; 2019-09-29)
PROC: 4A023N8 Measurement of Cardiac Sampling and Pressure, Bilateral, Percutaneous Approach (ICD-10-PCS; principal; 2019-09-29)
PROC: B41F1ZZ Fluoroscopy of Right Lower Extremity Arteries using Low Osmolar Contrast (ICD-10-PCS; principal; 2019-09-29)
PROC: B2151ZZ Fluoroscopy of Left Heart using Low Osmolar Contrast (ICD-10-PCS; principal; 2019-09-29)
PROC: B4101ZZ Fluoroscopy of Abdominal Aorta using Low Osmolar Contrast (ICD-10-PCS; principal; 2019-09-29)
DX: I11.0 Hypertensive heart disease with heart failure (principal); J18.9 Pneumonia, unspecified organism; J81.1 Chronic pulmonary edema; E87.1 Hypo-osmolality and hyponatremia; L03.317 Cellulitis of buttock; I50.23 Acute on chronic systolic (congestive) heart failure; L73.2 Hidradenitis suppurativa; E87.70 Fluid overload, unspecified; E11.65 Type 2 diabetes mellitus with hyperglycemia; E87.5 Hyperkalemia; F17.210 Nicotine dependence, cigarettes, uncomplicated; Z71.6 Tobacco abuse counseling; Z79.899 Other long term (current) drug therapy
CPT/HCPCS: 10081; 10879

== ENCOUNTER → 2020-08-19 | Outpatient (CLI) | payer OTHER ==
[~2020-08-19] MED LIST changes: +ASPIR 8181 MG PO; +AUGMENTIN 875-1 EACH PO; +BENICAR40 MG PO; +CARVEDILOL12.5 MG PO; +FERROUS SULFAT325 MG PO; +LASIX 40 MG TAB40 MG PO; +TORSEMIDE20 MG PO; +ULTRAM50 MG PO
== END ==
LOC: RAD 11:01
PROVIDERS: ATTEND Physician Assistant
DX: L73.2 Hidradenitis suppurativa (principal); Z79.899 Other long term (current) drug therapy

== ENCOUNTER 2020-09-20 15:45 | Inpatient (IN) | payer OTHER ==
[~2020-09-20] VITALS: Ht 180.3 cm; Wt 79.4 kg
[2020-09-20 15:51] VITALS: BP 138/89
[2020-09-20] MEDS ORDERED: TRULICITY0.75 MG/0. SUBQ (15:57)
[2020-09-20 16:02] LABS: HEMATOCRIT 30.4 % (42.0-52.0); HEMOGLOBIN 9.9 gm/dL (14.0-18.0); MCH 21.7 pg (26.0-34.0); MCHC 32.6 g/dL (28.0-37.0); MCV 66.5 fL (80.0-100.0); PLATELET COUNT 549 thou/uL (150-400); RBC 4.57 mil/uL (4.50-6.00); RDW 18.9 % (10.5-14.5)
[2020-09-20 16:10] LABS: CALCIUM 9.3 mg/dL (8.5-10.1); CREATININE 1.3 mg/dL (0.7-1.3); POTASSIUM 4.9 mmol/L (3.5-5.1)
[2020-09-20 16:17] LABS: ALBUMIN 2.3 g/dL (3.4-5.0); TOTAL BILIRUBIN 0.2 mg/dL (0.2-1.0); TOTAL PROTEIN 9.7 g/dL (6.4-8.2)
[2020-09-20 16:30] LABS: ABSOLUTE NEUTROPHILS 18.7 thou/uL (1.4-8.2)
[2020-09-20 18:02] LABS: URINE BILIRUBIN NEGATIVE (Negative); URINE BLOOD TRACE (Negative); URINE CLARITY CLEAR; URINE COLOR YELLOW; URINE GLUCOSE-RANDOM* NEGATIVE (Negative); URINE KETONES NEGATIVE (Negative); URINE LEUKOCYTES-REFLEX NEGATIVE (Negative); URINE NITRITE-REFLEX NEGATIVE (Negative); URINE PROTEIN (DIPSTICK) 1+ (Negative); URINE SPECIFIC GRAVITY 1.025 (1.005-1.035); URINE UROBILINOGEN 0.2 E.U./dl (0.2-1.0)
[2020-09-20 18:13] LABS: BACTERIA-REFLEX None Seen /HPF (None Seen); CASTS None Seen /LPF (None Seen); CRYSTALS None Seen /LPF (None Seen); SQUAMOUS None Seen /LPF (0-3); URINE RBC 0-2 Rare /HPF (0-2); URINE WBC-REFLEX 0-5 Rare /HPF (0-5)
[2020-09-20 20:05] VITALS: BP 118/58
[2020-09-20 20:15] VITALS: BP 113/74
[2020-09-20 20:41] VITALS: BP 125/78
--- NOTE | 2020-09-20 22:43 | NUR ---
Pt transported to via with his backpack with possession. VSS. not short of breath or needing 02. Pt was able to ambulate with SBA. Admission process started.
[2020-09-20 23:42] VITALS: BP 150/98
[2020-09-21 04:56] LABS: HEMATOCRIT 28.1 % (42.0-52.0); HEMOGLOBIN 8.6 gm/dL (14.0-18.0); MCH 20.6 pg (26.0-34.0); MCHC 30.6 g/dL (28.0-37.0); MCV 67.5 fL (80.0-100.0); RBC 4.17 mil/uL (4.50-6.00); RDW 18.7 % (10.5-14.5); WBC 19.3 thou/uL (4.0-11.0)
[2020-09-21 05:01] LABS: APTT 30.5 Seconds (24.5-32.8); PROTIME 10.5 Seconds (9.3-11.4)
[2020-09-21 05:10] LABS: CALCIUM 8.4 mg/dL (8.5-10.1); CREATININE 1.1 mg/dL (0.7-1.3); MAGNESIUM 1.9 mg/dL (1.8-2.4); POTASSIUM 4.7 mmol/L (3.5-5.1)
[2020-09-21 05:29] LABS: PLATELET COUNT 441 thou/uL (150-400)
[2020-09-21 06:27] LABS: ABSOLUTE NEUTROPHILS 10.2 thou/uL (1.4-8.2)
[2020-09-21 06:28] LABS: ANISOCYTOSIS 2+; HYPOCHROMASIA 3+; MICROCYTES 2+; PLATELET ESTIMATE INCREASED; POIKILOCYTOSIS 1+
[2020-09-21 06:29] LABS: SCHISTOCYTES 1+; TARGET CELLS 1+
[2020-09-21 07:08] LABS: GLYCOHEMOGLOBIN (HGB A1C) 10.8 % (4.8-5.6)
[2020-09-21 08:00] VITALS: BP 148/94
[2020-09-21 11:33] LABS: ABSOLUTE RETIC COUNT 0.0682 10^6/uL; OBSERVED RETIC COUNT 1.66 % (0.6-2.6)
--- NOTE | 2020-09-21 11:49 | NUR ---
PT ADMITTED RELATED TO HIDRADENTITS. CM REVIEWED CHART AND SPOKE WITH CARE TEAM. CM CALLED AND SPOKE WITH PT THIS DAY. PT APPEARED TO BE A&O X4. CM ROLE INTRODUCED. PT INDICATED HE RESIDES IN A HOUSE WITH HIS WITH 4 STEPS TO ENTER AND 20 STEPS TO BASEMENT. 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 PT INDICATED NO HH OR OP THERAPY HX. IT, WC , AND SURGERY CONSULTED. CM TO FOLLOW INDICATED WITH DC PLANNING.
--- NOTE | 2020-09-21 12:06 | NUR ---
ORDERS RECEIVED FOR PT EVAL AND TREAT. Pt ADMITTED FOR HIDRADENITIS SUPPURATIVA WITH BUTTOCK WOUNDS AND NOW LOWER LEG WOUNDS. Pt LIVES WITH IN HOME WITH 4 JEEVAN AND 20 STEPS INSIDE WITH ONE HANDRAIL. INDEP WITH GAIT. 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 Pt REPORTING BEING UP TO BATHROOM AND IN ROOM BY HIMSELF WITHOUT DIFFICULTIES. DENIED LIGHTHEADED/DIZZINESS AND BALANCE DEFICITS. REPORTED NO DEFICITS IN MOBILITY FROM PLOF. SNACKS PROVIDED TO Pt BY PT WITH RN APPROVAL. Pt DECLINING NEED FOR PT AT THIS TIME. ENCOURAGED TO WALK IN HALLWAY ABLE FOR INCREASED ACTIVITY. ACUTE PT TO SIGN OFF.
[2020-09-21 16:00] VITALS: BP 135/89
[2020-09-21 20:06] VITALS: BP 143/94
--- NOTE | 2020-09-22 05:21 | NUR ---
Assumed pt care at 1900. A/OX4,VSS. Pt is up ad yazan. C/o pain to buttocks and BLE,medicated per EMAR with relief reported. Pt did have a shower before HS with Hibiclens as ordered;declined to have abd pads placed on buttocks and using towels stating they are not big enough. RLE had some weeping before shower;none noted afterwards and he declined ABD to be applied and wants to wait for wound team to do anything with his wounds. Anxious about the POC since he doesn't want to miss too many days of work,informed Drs will be updating him during the day on the POC. Up on chair at this time,will continue to monitor pt.
--- NOTE | 2020-09-22 11:07 | NUR ---
PT ON IV VANC AND ZOSYN. SURGERY CONSULTED AND ARE DISCUSSING POSSIBLE DEBRIDEMENT LATER THIS WEEK. DERM ALSO CONSULTED. CM TO FOLLOW INDICATED WITH DC PLANNING.
--- NOTE | 2020-09-22 11:49 | HC ---
[facility] [place] [address] [place] [address] CONSULTATION Name: TOD RODRIGUEZ Room #: 449-I ADM IN M.R.#: [id number] Admission: 09/20/20 Attend Phys: Ash Norton MD Discharge: Date of : 79 Report #: [id number] THIS REPORT FOR: cc: Jose Garcia James A. DO Barry, Joseph W. MD ~ DATE OF SERVICE: 09/21/2020 INFECTIOUS DISEASE CONSULTATION ATTENDING PHYSICIAN: Dr. Norton. REASON FOR EVALUATION: Hidradenitis suppurativa, also secondary to multiple inflammatory lesions associated with the anterior aspect of the bilateral lower extremities. HISTORY OF PRESENT ILLNESS: Chart reviewed, the patient examined. 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 He noted initially had improvement; however, over recent days, had increasing pain continued drainage from the sites. Due to his clinical worsening, he was admitted for further evaluation including surgery, IV antibiotics. He is not overtly toxic. He does admit to significant amount of pain. He has not been systemically ill in terms of fevers, although intermittently has chills. He does not check his blood sugars. Apparently, he has had several labs taken, which showed persistent leukocytosis. On admission, his white count was 24. Sed rate was elevated at 122. Blood cultures are sterile thus far. Coronavirus testing was negative. Hemoglobin A1c was 10.8. Empirically started on broad-spectrum therapy with vancomycin and Zosyn. ALLERGIES: None known. MEDICATIONS: Include vancomycin, aspirin, torsemide, ferrous sulfate, metformin, carvedilol, glipizide, Zosyn, insulin sliding scale, p.r.n. analgesics and antiemetics. PAST MEDICAL HISTORY: Diabetes mellitus type 2, poorly-controlled, history of hidradenitis suppurativa, cardiomyopathy with congestive heart failure, COPD. SOCIAL HISTORY: Smokes cigarettes, half a pack for the last 20 years. Does drink alcohol several times a week. No illicit drug use. 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 [facility] [address] [place] [address] CONSULTATION Name: TOD RODRIGUEZ Room #: 449-I [facility] IN .R.#: [id number] Admission: 09/20/20 Attend Phys: Ash Norton MD Discharge: Date of : 79 Report #: [id number] FAMILY HISTORY: Noncontributory. REVIEW OF SYSTEMS: Otherwise, unremarkable. Denies any significant pulmonary or gastrointestinal related complaints. PHYSICAL EXAMINATION: GENERAL: Appears somewhat chronically ill, undernourished. He is pleasant, cooperative, in [id number]-[id number] distress. He is not encephalopathic. VITAL SIGNS: Temperature 97, pulse 99, respirations 18, blood pressure 148/94. SKIN: Warm, dry, no rashes. HEENT: Normocephalic. Extraocular muscles intact. NECK: Supple. LUNGS: Diminished, otherwise clear breath sounds. HEART: Regular. Borderline tachycardic. I do not appreciate a murmur. ABDOMEN: Soft, nontender. Posterior perineal area quite indurated, ongoing scarring. It is tender. It is difficult to ascertain any fluctuance versus just tissue edema. EXTREMITIES: Bilateral lower extremities have more isolated lesions of the anterior aspect that certainly could be skin and soft tissue infections in various stages. GENITOURINARY AND RECTAL: Deferred. LABORATORY DATA: Blood cultures sterile thus far. Most recent CBC: White count 19.3, H and H 8.6 and 28.1, platelets of 441. Has had some schistocytes target cells. Electrolytes: Sodium 139, potassium 4.7, chloride 107, bicarbonate is 27, anion gap of 5, BUN and creatinine 24 and 1.1, glucose of 122. Coronavirus PCR was negative. CRP of 146.9. Urinalysis unremarkable. Lactic acid 1.2. ASSESSMENT AND PLAN: Hidradenitis suppurativa involving the perineal site, also has secondary lesions involving the distal lower extremities, diabetes mellitus is uncontrolled, cardiomyopathy, marked leukocytosis. We will continue empiric therapy. Would have to broaden our potential list of microorganisms including both gram-positive and gram-negatives. Noted plans for surgery evaluation, may need time to localize if indeed he is going developed abscesses that would be amenable to drainage. At this point, he is not overtly toxic, although he is quite uncomfortable. We will continue to monitor expectantly. Add incentive spirometry, optimize his nutritional status, blood sugar control. <ELECTRONICALLY SIGNED> By: Tr Su MD 09/22/20 1149 [id number] 1403 Tr Su MD /nt
[2020-09-22 14:20] LABS: HEMATOCRIT 28.5 % (42.0-52.0); HEMOGLOBIN 8.8 gm/dL (14.0-18.0); MCH 20.6 pg (26.0-34.0); MCHC 30.8 g/dL (28.0-37.0); MCV 66.8 fL (80.0-100.0); PLATELET COUNT 485 thou/uL (150-400); RBC 4.26 mil/uL (4.50-6.00); RDW 18.9 % (10.5-14.5); WBC 22.9 thou/uL (4.0-11.0)
[2020-09-22 14:43] LABS: % SATURATION 9 % (20-39); IRON 15 ug/dL (65-175); TIBC 159 ug/dL (250-450)
[2020-09-22 15:00] LABS: ABSOLUTE NEUTROPHILS 18.8 thou/uL (1.4-8.2); PLATELET ESTIMATE NORMAL
[2020-09-22 15:01] LABS: ANISOCYTOSIS 2+; HYPOCHROMASIA 1+; MICROCYTES 2+
--- NOTE | 2020-09-22 16:17 | NUR ---
ASSUMED CARE AT 0700. PATIENT SLOWLY PROGRESSING TOWARDS THE PLAN OF CARE HOWEVER PAIN STILL PERSISTS IN AFFECTED REGIONS. POSSIBLE DEBRIDEMENT THIS WEEK.
[2020-09-22 20:00] VITALS: BP 129/74
[2020-09-22 21:11] LABS: FOLIC ACID 8.2 ng/mL (8.6-58.9)
[2020-09-23 00:06] LABS: HAV IgM AB (ANTI-HAV IgM) Negative (Negative); HEPATITIS B SURFACE AG Negative (Negative); HEPATITIS C VIRUS AB 0.1 (0.0-0.9)
--- NOTE | 2020-09-23 02:59 | NUR ---
PT CARE ASSUMED WITH PT WATCHING TV WITH AT BEDSIDE.PT IS A/O X4.PT IS UP AD KONSTANTIN AND EDUCATED TO CALL FOR HELP WHEN NEEDED AND PT CALLS APPROPRIETELY FOR HELP.PT C/O ON BUTTOCKS AND LOWER EXTREMITY AND PAIN MANAGED WITH MORPHINE PRN AND SILVER/MORPHINE CREAM.PT IS ACCUCHECK ACHS WITH LOW SSI.WILL CONTINUE TO MONITOR PER POC
[2020-09-23 05:30] LABS: CREATININE 1.5 mg/dL (0.7-1.3)
[2020-09-23 05:32] LABS: HEMATOCRIT 29.8 % (42.0-52.0); HEMOGLOBIN 9.1 gm/dL (14.0-18.0); MCH 20.8 pg (26.0-34.0); MCHC 30.6 g/dL (28.0-37.0); PLATELET COUNT 481 thou/uL (150-400); RBC 4.38 mil/uL (4.50-6.00); WBC 23.8 thou/uL (4.0-11.0)
[2020-09-23 06:57] LABS: ABSOLUTE NEUTROPHILS 21.7 thou/uL (1.4-8.2); ANISOCYTOSIS 2+; HYPOCHROMASIA 2+; MICROCYTES 2+; PLATELET ESTIMATE INCREASED; POIKILOCYTOSIS 1+
[2020-09-23 07:51] VITALS: BP 126/84
--- NOTE | 2020-09-23 10:48 | NUR ---
PT CONTINUES ON IV VANC AND ZOSYN. DERM SAW PT AND MADE RECOMMENDATIONS FOR INTERVENTIONS AND TREATMENTS. PT IS TO HAVE I&D OF HIP AND COXYX AREAS TOMORROW. CARE TEAM INDICATED THAT THEY ANTICIPATE THE PT WILL LIKELY BE HERE OVER THE WEEKEND. CM TO FOLLOW INDICATED WITH DC PLANNING.
--- NOTE | 2020-09-23 14:34 | NUR ---
PT A&OX4, VSS, GENERAL PAIN. PAIN MEDICATION GIVEN. STUDENT NURSE IN WITH INSTRUCTOR. PATIENT AD KONSTANTIN. DENIES NAUSEA TODAY. IV PATENT LFA. NO SIGNS OF DISTRESS. WILL CONTINUE TO MONITOR.
[2020-09-23 15:14] VITALS: BP 145/77
[2020-09-23 19:06] VITALS: BP 143/76
--- NOTE | 2020-09-24 02:18 | NUR ---
PT CARE ASSUMED WITH PT IN BED WATCHING TV.PT TOOK A SHOWER .PT IS A/O X4 AND PT IS UP AD KONSTANTIN.PT IS ACCUCHECK ACHS WITH LOW SSI.PT IV ACCESS ON LT FA SL.PT NPO FROM MIDNIGHT FOR DEBRIDEMENT OF HIDRADENITIS ON BILATERAL BUTTOCKS AND LOWER EXTREMITY.PAIN IN BUTTOCKS AND JARET LE MANAGED WITH MORPHINE.WILL CONTINUE TO MONITOR
[2020-09-24 07:21] VITALS: BP 120/68
[2020-09-24 07:32] VITALS: BP 143/67
--- NOTE | 2020-09-24 10:52 | NUR ---
PT CONTINUES ON IV VANC AND ZOSYN. DERM SAW PT AND MADE RECOMMENDATIONS FOR INTERVENTIONS AND TREATMENTS. PT IS TO HAVE I&D OF HIP AND COXYX AREAS TODAY. CARE TEAM INDICATED THAT THEY ANTICIPATE THE PT WILL LIKELY BE HERE OVER THE WEEKEND. CM TO FOLLOW INDICATED WITH DC PLANNING.
[2020-09-24 11:33] VITALS: BP 125/64
--- NOTE | 2020-09-24 12:16 | NUR ---
PT BACK TO FLOOR APPROX 1140. PATIENT HAD I&D TODAY. PATIENT A&OX3, VSS, GENRAL PAIN. PATIENT AT BEDSIDE.
[2020-09-24 14:47] VITALS: BP 128/73
[2020-09-24 16:35] VITALS: BP 120/54
[2020-09-24 19:50] VITALS: BP 116/61
--- NOTE | 2020-09-25 04:05 | NUR ---
PT C/O PAIN ON HIS BLE AND BUTTOCK,MANAGED WITH MED.PT UP ADLIB IN ROOM.PT'S DSRG TO BLE C/D/I.DRSG TO HIS BUTTOCK SATURATED,REINFORCED WITH ABD.BG MONITORED,COVERAGE GIVEN.PT NOT COMPLIANT WITH HIS DM,PT OBSERVED EATING FOOD HIGH IN CARBS,EDUCATION GIVEN.PT CONT ON IVF AND IV ABX ORDERED.CALL LIGHT WITHIN REACH.
[2020-09-25 04:14] LABS: CALCIUM 8.2 mg/dL (8.5-10.1); CREATININE 1.2 mg/dL (0.7-1.3); MAGNESIUM 1.8 mg/dL (1.8-2.4)
[2020-09-25 05:47] LABS: HEMATOCRIT 23.3 % (42.0-52.0); MCH 20.8 pg (26.0-34.0); MCV 69.3 fL (80.0-100.0); PLATELET COUNT 423 thou/uL (150-400); RBC 3.37 mil/uL (4.50-6.00); RDW 19.9 % (10.5-14.5); WBC 25.7 thou/uL (4.0-11.0)
[2020-09-25 06:18] LABS: ABSOLUTE NEUTROPHILS 21.3 thou/uL (1.4-8.2)
[2020-09-25 08:30] VITALS: BP 129/63
--- NOTE | 2020-09-25 10:46 | NUR ---
Assumed care of pt at 0700. Pt a&ox4. Pain controlled with prn pain meds. Dressing on buttocks draining. Reinforced. Hg 7.0. Provider aware. Blood transfusion ordered. Awaiting to see the wound doctor. Possible surgery on Sunday. Up ad yazan. IVF and IV antibiotics infusing. Call light within reach. Will continue to monitor.
[2020-09-25 13:15] VITALS: BP 138/66; BP 140/67; BP 142/68; BP 143/69
[2020-09-25 18:50] LABS: HEMATOCRIT 24.5 % (42.0-52.0); HEMOGLOBIN 7.6 gm/dL (14.0-18.0)
[2020-09-25 20:10] VITALS: BP 140/79
--- NOTE | 2020-09-26 03:13 | NUR ---
PT C/O PAIN ON HIS BUTTOCK,MANAGED WITH MED.PT NOT COMPLIANT WITH HIS DIET,EDUCATION GIVEN.PT UP ADLIB IN HIS ROOM WITH A STEADY GAIT.DRSG TO HIS BLE C/D/I.DRSG TO HIS BUTTOCKS SATURAED,REINFORCED WITH GAUZE AND ABD.PT CONT ON IVF AND IV ABX ORDERED.PT RESTING ON HIS BED AT THIS TIME.CALL LIGHT WITHIN REACH.
[2020-09-26 08:40] LABS: HEMATOCRIT 25.2 % (42.0-52.0); HEMOGLOBIN 7.7 gm/dL (14.0-18.0); MCH 21.1 pg (26.0-34.0); MCHC 30.5 g/dL (28.0-37.0); MCV 69.2 fL (80.0-100.0); PLATELET COUNT 428 thou/uL (150-400); RBC 3.64 mil/uL (4.50-6.00); RDW 19.9 % (10.5-14.5); WBC 29.1 thou/uL (4.0-11.0)
[2020-09-26 09:01] LABS: CALCIUM 8.4 mg/dL (8.5-10.1); TOTAL BILIRUBIN 0.2 mg/dL (0.2-1.0); TOTAL PROTEIN 7.6 g/dL (6.4-8.2)
[2020-09-26 09:15] VITALS: BP 148/82
[2020-09-26 10:42] LABS: ABSOLUTE NEUTROPHILS 22.1 thou/uL (1.4-8.2); ANISOCYTOSIS 2+; HYPOCHROMASIA 2+
[2020-09-26 10:45] LABS: MICROCYTES 2+
[2020-09-26 15:51] VITALS: BP 132/79
--- NOTE | 2020-09-26 16:10 | NUR ---
PT A&OX4, VSS, GENERAL PAIN. DRESSING CHANGED PER WOUND CARE ORDERS. PATIENT D/T HAVE A SECOND I&D DONE 09/27. PATIENT ON CLEAR LIQUIDS AT THIS TIME AND TAKING BOWEL PREP FOR DIVERTING COLOSTOMY. AT BEDSIDE. IV IN RIGHT HAND NS RUNNING ORDERED. THERE IS AN ORDER FOR 1 UNIT OF BLOOD, UNDER THE LABS TAB, CLICK VIEW/CHANGE, THERE ARE COMMENTS TO HOLD THIS UNIT FOR THE OR FOR 09/27. LAB NOTIFIED WELL. NO SIGNS OF DISTRESS. WILL CONTINUE TO MONITOR.
[2020-09-26 19:25] VITALS: BP 115/61
--- NOTE | 2020-09-27 03:37 | NUR ---
ASSUMED CARE OF PT AT SHIFT CHANGE. PT AOX4 AND LETS NEEDS BE KNOWN. PT IS UP AD KONSTANTIN. PT REPORTED PAIN AND PRN PAIN MEDS GIVEN. PT WAS ABLE TO FINISH 3X MAG CIT AND HAD SEVERAL BM. PT DENIED NAUSEA OR SOA. PT PLACED NPO AT MIDINIGHT FOR PROCEDURE IN THE AM. PT WAS ABLE TO GET COMFORTABLE AND SLEEP PART OF THE SHIFT. VSS AND NO S/S OF ACUTE DISTRESS. WILL CONTINUE TO MONITOR FOR CHANGES.
[2020-09-27 05:16] LABS: HEMATOCRIT 24.5 % (42.0-52.0); HEMOGLOBIN 7.4 gm/dL (14.0-18.0); MCH 21.1 pg (26.0-34.0); MCHC 30.2 g/dL (28.0-37.0); MCV 69.9 fL (80.0-100.0); PLATELET COUNT 417 thou/uL (150-400); RDW 19.9 % (10.5-14.5); WBC 31.4 thou/uL (4.0-11.0)
[2020-09-27 05:29] LABS: APTT 28.7 Seconds (24.5-32.8); PROTIME 10.1 Seconds (9.3-11.4)
[2020-09-27 05:35] LABS: ALBUMIN 1.7 g/dL (3.4-5.0); CALCIUM 8.2 mg/dL (8.5-10.1); CREATININE 1.1 mg/dL (0.7-1.3); MAGNESIUM 2.4 mg/dL (1.8-2.4); POTASSIUM 4.1 mmol/L (3.5-5.1); TOTAL BILIRUBIN 0.2 mg/dL (0.2-1.0); TOTAL PROTEIN 7.2 g/dL (6.4-8.2)
[2020-09-27 07:48] VITALS: BP 117/51
[2020-09-27 08:31] LABS: ABSOLUTE NEUTROPHILS 20.7 thou/uL (1.4-8.2)
[2020-09-27 08:32] LABS: ANISOCYTOSIS 3+; HYPOCHROMASIA 2+; MICROCYTES 2+; PLATELET ESTIMATE NORMAL; POLYCHROMASIA SLIGHT; TARGET CELLS 2+
--- NOTE | 2020-09-27 09:04 | O ---
[facility] [address] [place] [address] OPERATIVE REPORT Name: TOD RODRIGUEZ Room #: 449-I ADM IN M.R.#: [id number] Admission: 09/20/20 Attend Phys: Ash Norton MD Discharge: Date of : 79 Report #: [id number] THIS REPORT FOR: cc: Jose Garcia James A. DO Soliman, Mohsin Q. MD FACS ~ DATE OF SERVICE: 09/24/2020 PREOPERATIVE DIAGNOSES: 1. Bilateral buttock chronic hidradenitis suppurativa. 2. Marked leukocytosis. 3. Bilateral lower extremity maculopapular rash with lesions. 4. Leukocytosis. 5. Diabetes mellitus. POSTOPERATIVE DIAGNOSES: 1. Bilateral buttock chronic hidradenitis suppurativa. 2. Marked leukocytosis. 3. Bilateral lower extremity maculopapular rash with lesions. 4. Leukocytosis. 5. Diabetes mellitus. PROCEDURES PERFORMED: 1. Excisional debridement of skin, subcutaneous tissue and muscle/fascia of bilateral buttock hidradenitis suppurativa, ultimately measuring 40.5 x 22 cm in dimension (891 square cm). Preoperative wound measurements showed a thickened indurated area with multiple purulent draining nidus sinus tracts approximately 50 cm transversely x 30 cm in craniocaudal dimension all the way down to the perianal tissues. 2. Excisional debridement of skin and subcutaneous tissue of posterior bilateral lower extremity wounds measuring 5.5 x 2 cm in dimension for each lower leg (11 square cm per leg to total 22 square cm). Preoperative wound measurements showed open draining necrotic sores measuring 1 x 1 cm in dimension with periwound erythema and induration. SURGEON: Norberto Dawson MD ELECTRICAL DRAFTER: CODY Singh. ANESTHESIA: General endotracheal anesthesia. ESTIMATED BLOOD LOSS: 20 mL. COMPLICATIONS: None appreciated. [facility] [address] [place] [address] OPERATIVE REPORT Name: TOD RODRIGUEZ Room #: 449-I [facility].#: [id number] Admission: 09/20/20 Attend Phys: Ash Norton MD Discharge: Date of : 79 Report #: [id number] SPECIMENS: Debrided tissue to pathology. INDICATIONS: The patient is a 45-year-old -[place] Citizen male with a longstanding history of bilateral buttock hidradenitis suppurativa. The patient has been treated on numerous occasions with previous debridements as well as longstanding antibiotic therapy. The patient was most recently admitted secondary to a marked leukocytosis as well as nonhealing bilateral buttock and bilateral lower extremity wounds, even after being on a month's worth of oral doxycycline. He was admitted through the Emergency Room for definitive management. The patient has been seen by wound care service, Dermatology, and Infectious Disease who all request surgical evaluation and management for control of his disease process. As such, indication was for the above-mentioned procedure is today. DESCRIPTION OF PROCEDURE: After explaining the risks, benefits and alternatives of the procedure with the patient in detail in the preoperative holding area and obtaining consent, the patient was brought to the operating room and placed supine on his hospital bed. After conducting a thorough timeout procedure verifying correct patient and procedure, the patient was given general endotracheal anesthesia. Once adequate anesthesia was obtained, he did not have SCDs placed due to the significant bilateral lower extremity wounds; however, he was now placed in the prone position on the operating room table with all pressure points appropriately padded. The patient's bilateral buttock wounds as well as bilateral lower extremities were circumferentially prepped and draped in a standard surgical sterile fashion. Attention was first turned towards the bilateral lower extremity wounds. On the posterior aspect of the bilateral lower legs, midway between the knee and the ankle, there were necrotic open draining wounds with periwound induration and erythema. Elliptical incisions were made around these wounds carried through the indurated tissue and to normal tissue with a #10 bladed scalpel, which was sharply debrided through skin, subcutaneous tissue and down to muscle/fascia. Electrocautery was now used to further debride all nonviable tissue including muscular fascia and this was then passed off the field ultimately yielding both the left and right lower legs measuring 5.5 x 2 cm in dimension. These were passed off the field to pathology for definitive diagnosis. Hemostasis was assured with electrocautery. As the bilateral lower legs were relatively clean and I saw no evidence of purulent drainage, I did perform circumferential undermining of both wounds and was able to close both wounds using 2-0 nylon in a vertical mattress fashion placing several sutures for each wound to reapproximate the subcutaneous and dermal tissues. These wounds were then dressed with 4 x 4s, Kerlix gauze and Cosme wraps to the knee. Attention was now turned to debridement of the bilateral buttock wounds. The patient's wounds at his buttocks were markedly thickened, indurated with innumerable purulent draining sinus tracts. These spanned across the midline down the gluteal cleft and down to the perianal tissues. Large transverse incisions were made overlying the center most portion of these [address] [address] OPERATIVE REPORT Name: TOD RODRIGUEZ Room #: 449-I ADM IN M.R.#: [id number] Admission: 09/20/20 Attend Phys: Ash Norton MD Discharge: Date of : 79 Report #: [id number] lesions from the patient's right to left hip, carried across the midline. Electrocautery was used to carry this down through skin and subcutaneous tissues until I was able to arrive upon muscle/fascia and I debrided as much nonviable tissue as I could find at this juncture with reserving overall debridement down to the perianal tissues due to the severity and morbidity of that potential debridement. I did request Dr. Dax Recio of the wound care service, present to the operating room at which time a thorough discussion between the two of us was held and we agree that definitive management will include removal of all nonviable tissue down to the perianal tissues as well as a diverting colostomy for proper surgical management. As such and without previous consent to do so, the patient's wounds were made hemostatic with electrocautery and then packed tightly with sterile saline soaked Kerlix gauze, dressed with 4 x 4s, ABDs and Medipore tape completing the procedure at this time with formal debridement measuring 891 square cm as delineated above. The patient tolerated the procedure without incident. All instrument, needle and sponge counts were correct. The patient was awakened in the operating room, transitioned to the recovery room in stable condition with no apparent complications where a postoperative lengthy discussion will be held with the patient and his regarding how best to proceed with definitive surgical management moving forward. <ELECTRONICALLY SIGNED> By: Norberto Dawson MD, FACS 09/27/20 0904 1156 [id number] Norberto Dawson MD, FACS /nt
--- NOTE | 2020-09-27 11:37 | HC ---
[facility] [place] [address] [place] [address] CONSULTATION Name: TOD RODRIGUEZ Room #: 449-I ADM IN M.R.#: [id number] Admission: 09/20/20 Attend Phys: Ash Norton MD Discharge: Date of : 79 Report #: [id number] THIS REPORT FOR: cc: Jose Garcia James A. DO Althoff, Jeffrey R. MD ~ DATE OF SERVICE: 09/21/2020 CHIEF COMPLAINT: Hidradenitis suppurativa ____ gluteal region. HISTORY OF PRESENT ILLNESS: This is a 45-year-old male patient who is normally followed by Dr. Garcia, who was admitted for worsening of chronic hidradenitis suppurativa of the gluteal region. He has been seen by his management information systems director. Humira has been ordered. The first dose has been delivered to his home; however, he has not taken the dose yet. He is having increasing pain, swelling and drainage from his buttocks as well as he has developed multiple draining ulcerations to the pretibial regions bilaterally. PAST MEDICAL HISTORY: Positive for history of hidradenitis suppurativa. He has had prior debridements. He has had history of congestive heart failure, COPD, pneumonia. Positive for type 2 diabetes mellitus. SOCIAL HISTORY: The patient admits to occasional alcohol use. He is a daily smoker. MEDICATIONS: Include ferrous sulfate, Glucotrol, metformin, and Trulicity. ALLERGIES: No known drug allergies. FAMILY HISTORY: Noncontributory. REVIEW OF SYSTEMS: CONSTITUTIONAL: The patient denies fever, chills or weight loss. NEUROLOGICAL: The patient denies focal weakness, numbness or tingling. EYES: The patient denies visual changes, redness, or drainage. ENT: The patient denies earache, nasal drainage, sore throat. CARDIOVASCULAR: The patient denies chest pain, palpitations or diaphoresis. PULMONARY: The patient denies cough or shortness of breath. GASTROINTESTINAL: The patient denies nausea, vomiting, diarrhea or abdominal pain. ORTHOPEDIC: The patient does complain of pain, drainage from the gluteal region bilaterally as well as from both pretibial regions bilaterally. Other systems in a 14-point review of systems are negative. PHYSICAL EXAMINATION: [facility] [address] [place] [address] CONSULTATION Name: TOD RODRIGUEZ Room #: 449-I ADM IN M.R.#: [id number] Admission: 09/20/20 Attend Phys: Ash Norton MD Discharge: Date of : 79 Report #: [id number] VITAL SIGNS: At this time include temperature 37.2, pulse 90, ____ 135/89. GENERAL: This is a well-developed male patient who appears to be in minimal distress. HEENT: Head normocephalic. Nose and throat clear. NECK: Supple. LUNGS: Clear. ABDOMEN: Soft. Bowel sounds present. EXTREMITIES: The gluteal region demonstrates areas of tenderness and nodularity and a few areas of small abscesses that are draining spontaneously to the surface. Lower extremities demonstrate some hyperpigmentation to the pretibial regions with multiple nodular small abscesses as well. NEUROLOGIC: The patient is alert and oriented and appropriate. LABORATORY DATA: Include sodium 139, potassium 4.7, chloride 107, CO2 of 27, BUN 24, creatinine 1.1, glucose 206. White blood cell count 19.3 with a hemoglobin of 8.6. CLINICAL IMPRESSION: 1. Progressive hidradenitis suppurativa to the buttocks bilaterally. 2. Subcutaneous abscesses to the pretibial regions. Etiology unclear. It would certainly be an unusual presentation for hidradenitis. We would certainly consider the possibility of pyoderma gangrinosum especially in light of his other underlying medical issues. RECOMMENDATIONS: At this point in time, we will recommend Hibiclens scrub daily. He will need general surgical evaluation and debridement, possible diverting colostomy. We will receive intravenous antibiotic therapy at present. Dr. Hoang from Dermatology is also seeing him here. I appreciate being asked to see him in consultation. <ELECTRONICALLY SIGNED> By: Bryant Ji MD 09/27/20 1137 0920 1020 Bryant Ji MD /nt
[2020-09-27 12:05] VITALS: BP 110/48
[2020-09-27 12:06] LABS: GLOBULIN TOTAL 5.8 g/dL (2.2-3.9); M-SPIKE Not Observed g/dL (Not Observed)
--- NOTE | 2020-09-27 14:13 | NUR ---
Nutrition: Folate level-8.2. REC folic acid supplementation.
--- NOTE | 2020-09-27 15:19 | NUR ---
ASSUMED PT CARE THIS AM. PT VSS, A&OX4. PT PLEASANT AND COOPERATIVE WITH STAFF. RETURNED FROM SURGERY AROUND 1200. DRESSING ON BOTTOM C/D/I. COLOSTOMY WORKING WELL, PATIENT PASSING GAS THROUGH IT WELL. ON 2 LITERS NC POST SURGERY. IV PATENT, FLUIDS INFUSING. PAIN MANAGED WITH MEDS GIVEN PER EMAR. POOR DIET AFTER SURGERY, WILL ENCOURAGE MEAL AT DINNER TIME. SCD'S ON. PATIENT CALLING WHEN NEEDED, FAMILY MEMBER AT BEDSIDE.
--- NOTE | 2020-09-27 15:24 | NUR ---
PT HAD I&D AND DIVERTING COLOSTOMY PLACED THIS DAY. PT CONTINUES ON IV ABX. CM TO FOLLOW INDIATED WITH DC PLANNING.
[2020-09-27 15:35] VITALS: BP 93/32
--- NOTE | 2020-09-27 18:31 | O ---
[facility] [place] [address] [place] [address] OPERATIVE REPORT Name: TOD RODRIGUEZ Room #: 449-I ADM IN M.R.#: [id number] Admission: 09/20/20 Attend Phys: Ash Norton MD Discharge: Date of : 79 Report #: [id number] THIS REPORT FOR: cc: Jose Garcia James A. DO Soliman, Mohsin Q. MD [facility] ~ DATE OF SERVICE: 09/27/2020 PREOPERATIVE DIAGNOSES: 1. Bilateral buttock hidradenitis suppurativa with active purulent infection. 2. Bilateral lower extremity maculopapular rash. 3. Diabetes mellitus. 4. Arthritis. POSTOPERATIVE DIAGNOSES: 1. Bilateral buttock hidradenitis suppurativa with active purulent infection. 2. Bilateral lower extremity maculopapular rash. 3. Diabetes mellitus. 4. Arthritis. PROCEDURES PERFORMED: 1. Excisional debridement of skin, subcutaneous tissue and muscle/fascia of bilateral buttock/sacro-gluteal wounds ultimately measuring 55 x 25 cm in dimension (1375 square cm). Preoperative wound measurements were 40.5 x 22 cm in dimension with significant periwound induration, thickening and purulent drainage. 2. Diverting loop transverse colostomy. SURGEON: Norberto Dawson MD SCRAP DROP ENGINEER: CODY Singh. ANESTHESIA: General endotracheal anesthesia. ESTIMATED BLOOD LOSS: 20 mL. COMPLICATIONS: None appreciated. SPECIMENS: All debrided sacro-gluteal/buttock tissue to pathology. 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 The patient has been treated with numerous debridements as well as longstanding antibiotic therapy and has shown evidence of gross purulent [facility] [address] [place] [address] OPERATIVE REPORT Name: TOD RODRIGUEZ Room #: 449-I ADM IN .R.#: [id number] Admission: 09/20/20 Attend Phys: Ash Norton MD Discharge: Date of : 77 Report #: [id number] drainage with his skin and dermal tissues being an inch thick in some places. The patient has failed longstanding antibiotic therapy and remains with a marked leukocytosis and after thorough consultation with the patient, his , Infectious Disease, Dermatology and the wound care service we have all agreed to proceed with the above-mentioned procedures for definitive surgical management today. DESCRIPTION OF PROCEDURE: After explaining the risks, benefits and alternatives of the procedure with the patient in detail in the preoperative holding area and obtaining consent, the patient was brought to the operating room and placed supine on his hospital bed. After conducting a thorough timeout procedure verifying correct patient and procedure, the patient was given general endotracheal anesthesia. Once adequate anesthesia was obtained, his SCDs were hooked up to pneumatic compression device. He was given a preoperative dose of antibiotics in line with the SCIP protocol as it was time for his regularly scheduled inpatient dosing regimen. The patient was now positioned on the operating room table in the prone position with all pressure points appropriately padded and his bilateral buttock/sacro-gluteal wounds were prepped and draped in standard surgical sterile fashion. Electrocautery was now used to circumferentially debride all nonviable/infected thickened skin and subcutaneous tissue from the periphery of the wounds, carried down to the bed of the wound where muscular fascia was taken revealing some areas of muscular exposure. The circumferential debridement was carried out until we arrived upon normal healthy vascularized skin, dermis and subcutaneous tissue at the periphery of the wounds. Care was taken to ensure no encroachment upon the external anal sphincter complex as a finger was placed within the anus and rectum and this was controlled throughout. The tissues were debrided down to approximately 2 cm circumferentially around the anus as there was diseased tissue all the way down to this level. Again no encroachment upon the external anal sphincter or getting close to the rectal wall was encountered. Once all the excised tissue was removed, it was passed off the field. Hemostasis was assured with electrocautery. The wound was then dressed with sterile saline soaked Kerlix gauze, 4 x 4s, ABDs and Medipore tape. The patient was then repositioned on the operating room table in the supine position where the abdomen was prepped and draped in standard surgical sterile fashion. A #10 bladed scalpel was used to create a 2.5 cm vertical incision in the right upper quadrant midway between the umbilicus and the xiphoid. Electrocautery was used to carry this down through skin and subcutaneous tissues to arrive upon the fascia, which was scored vertically revealing the right rectus muscle. A hemostat was used to spread the fibers of the rectus muscle, revealing the posterior fascia, which was elevated between hemostats. The fascia was opened using Metzenbaum scissors, gaining entrance into the abdomen. A finger was then placed in this defect and opened it using electrocautery to ensure hemostasis. Immediately evident posterior to our incision was the transverse colon, seen running [id number]. A Marianna clamp was used to grasp the antimesenteric border. This was elevated into the [facility] [address] [place] [address] OPERATIVE REPORT Name: TOD RODRIGUEZ Room #: 449-I ADM IN M.R.#: [id number] Admission: 09/20/20 Attend Phys: Ash Norton MD Discharge: Date of : 79 Report #: [id number] bed of the wound. The tinea running on the antimesenteric aspect was identified and a small colotomy was made with electrocautery with elevating it between DeBakeys. Hemostat was then placed within the colotomy and this was opened longitudinally with electrocautery controlling it with a hemostat to ensure no injury to the back wall. I then matured the colostomy in standard Mitali fashion using full thickness sutures of 3-0 Vicryl at the 12, 3, 6, and 9 o'clock positions grabbing bites of seromuscular colon down deep and anchoring it to the dermis. This gave a slight deering appearance. Each of the resultant 4 quadrants were closed using short runs of 3-0 Vicryl to anchor the mucocutaneous juncture throughout. Digital finger intubation of both afferent and efferent limbs showed patency to a subfascial level. Hemostasis was assured. A sterile colostomy appliance was then applied completing the procedure. At the end of the procedure, all instrument, needle and sponge counts were correct. The patient tolerated the procedure without incident, was awakened in the operating room, transitioned to the recovery room in stable condition with no apparent complications. <ELECTRONICALLY SIGNED> By: Norberto Dawson MD, FACS 09/27/20 1831 1103 1202 Norberto Dawson MD, INGA /nt
[2020-09-27 20:18] VITALS: BP 104/56
[2020-09-28 06:06] LABS: HEMATOCRIT 23.7 % (42.0-52.0); HEMOGLOBIN 7.1 gm/dL (14.0-18.0); MCHC 30.1 g/dL (28.0-37.0); MCV 69.9 fL (80.0-100.0); RBC 3.39 mil/uL (4.50-6.00); RDW 20.6 % (10.5-14.5); WBC 32.1 thou/uL (4.0-11.0)
[2020-09-28 06:10] LABS: CALCIUM 8.3 mg/dL (8.5-10.1); CREATININE 1.4 mg/dL (0.7-1.3); POTASSIUM 4.8 mmol/L (3.5-5.1)
--- NOTE | 2020-09-28 06:27 | NUR ---
ASSUMED CARE OF PT AT SHIFT CHANGE. PT AOX4 AND LETS NEEDS BE KNOWN. PT IS UP AD KONSTANTIN. PT IS POST OP DAY 0. COLOSTOMY IS INTACT AND DRAINING. PT WAS EDUCATED ON HOW TO CARE FOR COLOSTOMY; REPEAT EDUCATION NEEDED. REINFORCED SURGICAL DRESSING CAME OFF BUTTOCKS AROUND 0300HRS. THIS RN REPLICATED DRESSING WITH LIMITED SUPPLIES. IV ABX CONTINUED. PT REPORTED PAIN AND WAS TREATED WITH PRNS. PT WAS ABLE TO SLEEP PART OF THE SHIFT. VSS AND NO S/S OF ACUTE DISTRESS. WILL CONTINUE TO MONITOR.
[2020-09-28 07:20] VITALS: BP 128/79
--- NOTE | 2020-09-28 12:00 | NUR ---
ASSUMED PT CARE THIS AM. PT VSS, A&OX4. PT COOPERATIVE WITH STAFF AND CALLING APPROPRIATELY WHEN NEEDED. TOOK ALL MEDS WITHOUT ISSUE THIS AM. IV PATENT, IV FLUIDS AND ANTIBIOTICS INFUSING ORDERED. DRESSING ON BOTTOM NOT NEEDING REINFORCED AT THIS TIME. PATIENT HAS BEEN AMBULATORY AROUND UNIT WITHOUT ISSUE. REPORTING NO NAUSEA, VOMITING, NUMBNESS, OR TINGLING. PAIN IS BEING MANAGED WELL BY MEDICATIONS GIVEN ORDERED. ON ROOM AIR.
--- NOTE | 2020-09-28 12:07 | PATH ---
[facility] [place] [address] [place] [address] [place] [address] PATHOLOGY RPT PROCEDURE Name: TOD RODRIGUEZ Room #: 449-I ADM IN M.R.#: [id number] Admission: 09/20/20 Date of : 79 Discharge: Report #: [id number] Path Case #: [id number] LCA Accession Number: [id number] . 01 Material submitted: . PART A: leg - LEFT LOWER LEG. Modifiers: left, lower PART B: leg - RIGHT LOWER LEG. Modifiers: right, lower . 01 Clinical history: . DEBRIDEMENT DECUBITUS ULCER SACRAL DECUBITUS ULCER . 02 Diagnosis: A. Left lower leg: - Skin and subcutaneous tissue showing ulceration along with marked acute inflammation as well as abscess formation. . B. Right lower leg: - Skin and subcutaneous tissue showing ulceration along with marked acute inflammation as well as abscess formation. . (IUV:mml; 09/27/2020) QLM 09/27/2020 1655 Local . 02 Electronically signed: . Emperatriz Bassett MD, Pathologist NPI- [id number] . 01 Gross description: . A. The specimen is received in formalin, labeled "Tod Rodriguez, left lower leg". Received is an ellipse of skin measuring 3.8 x 1.1 x 0.6 cm in greatest dimensions. The epidermal surface displays a poorly circumscribed, irregular in contour and light hatfield lesion measuring 1.0 x 0.9 cm. The surgical margin is inked. The specimen is sectioned into 12 pieces and entirely submitted in cassettes A1 through A3, with the bisected tips placed in cassette A3. . B. The specimen is received in formalin, labeled "Tod Rodriguez, right lower leg". Received is an ellipse of skin measuring 3.4 x 1.1 x 0.7 cm in greatest dimensions. The epidermal surface displays a well circumscribed, irregular in contour and light brown lesion measuring 0.9 x 0.8 cm. The surgical margin is inked. The specimen is sectioned into 12 pieces and entirely submitted in cassettes B1 through B3, with the bisected tips placed in cassette B3. (CAA; 09/26/2020) QAC/QAC 09/26/2020 1848 Local . 02 [place] [address] PATHOLOGY RPT PROCEDURE Name: TOD RODRIGUEZ Room #: 449-I ADM IN M.R.#: [id number] Admission: 09/20/20 Date of : 79 Discharge: Report #: [id number] Path Case #: [id number] Pathologist provided ICD-10: L98.499, L08.9, L02.415, L02.416 . 02 CPT . 161369, 641457 Specimen Comment: A courtesy copy of this report has been sent to [phone] Specimen Comment: Report sent to Performed at: [address], [place] [id number] MD Mauricio Perez MD Phone: [phone] Performed at: [address] [id number] MD Emperatriz Bassett MD Phone: [phone]
--- NOTE | 2020-09-28 15:17 | NUR ---
CARE TEAM INDICATING THAT PT IS PROGRESSING TOWARD GOAL OF DISCHARGE. PT CONTINUES ON IV VANC AND ZOSYN. PT HAS NEW DIVERTING COLOSTOMY. WC IS TO ADMINISTER A WOUND VAC AND AN ORDERS FOR A HOME VAC HAVE BEEN INITIATED THROUGH [facility] PER NURSE. CM SPOKE WITH PT ABOUT GETTING BENEFIT COVERAGE FOR POSSIBLE HOME INFUSION SERVICES. HE WAS AGREEABLE WITH REFERRAL BEING SENT. HE INDICATED NO PREFERENCE IN PROVIDER. [facility] TAKES HIS CIGNA. REFERRAL SENT TO [facility] FOR THEM TO RUN INSURANCE COVERAGE FOR POSSIBLE IV VANC AND ZOSYN UPON DC. CM ATTEMPTED PT TO PT'S SPOUSE TO DISCUSS POSSIBLE SERVICES WELL. CM TO FOLLOW INDICATED WITH DC PLANNING.
[2020-09-28 17:42] VITALS: BP 132/86
[2020-09-28 21:14] VITALS: BP 137/76
--- NOTE | 2020-09-29 04:45 | NUR ---
Assumed pt care at 1900.A/OX4,VSS. Up ad yazan w/IV pole on the unit. C/o pain to buttocks,medicated per EMAR with some relief reported. Woundvac in place on buttocks with continuous suction @125MMhg,serosanguineous drainage noted on the canister.BLE dsgs C/D/I. Colostomy in place with small loose BM noted. Pt wanted to change colostomy since it's been a day since placement;pt informed it's good for 3-5 days unless it's leaking or falling off,flange intact. New IV inserted on LUE,IVF infusing w/o any problems. Resting quietly on the chair at this time. Will continue to monitor pt.
[2020-09-29 06:03] LABS: HEMATOCRIT 22.6 % (42.0-52.0); MCHC 30.9 g/dL (28.0-37.0); MCV 71.2 fL (80.0-100.0); RBC 3.17 mil/uL (4.50-6.00); RDW 20.8 % (10.5-14.5); WBC 26.8 thou/uL (4.0-11.0)
[2020-09-29 06:50] LABS: CALCIUM 8.5 mg/dL (8.5-10.1); CREATININE 1.3 mg/dL (0.7-1.3); MAGNESIUM 2.3 mg/dL (1.8-2.4); POTASSIUM 4.7 mmol/L (3.5-5.1)
--- NOTE | 2020-09-29 08:40 | NUR ---
WOUND CONSULT *LATE ENTRY* I ASSESSED THE WOUND WHILE ROUNDING WITH DR MARYCHUY SPANN AND KARISSA OTOOLE. THE WOUND IS LARGE MEASURING 20 X 45 X 2.2. THE WOUND WAS CREATED BY SURGICAL DEBRIDEMANT. THE WOUND IS TO THE BILATERAL BUTTOCKS. THE WOUND BED HAS MOSTLY SUBCUTANEOUS FAT PRESENT AND IS PINK VS GOOD HEALTHY RED TISSUE. I AM PRESENT TO ASSESS WITH THE DR SPANN AND APPLY A VAC. THERE IS NO S/S OF INFECTION. THE PATIENT TOLERATED THE DRESSING CHANGE WELL WITH SOME IV PAIN MEDS. RECOMMENDATIONS; PER DR SPANN ORDERED VAC THERAPY TO BE INIATED TODAY. DISCUSSED WITH STAFF
--- NOTE | 2020-09-29 11:02 | NUR ---
CM REACHED OUT TO [facility] THIS AM. THEY INDICATED THAT PT HAS 1050 DUDUCTABLE AND AN OP OF 3,800 OF WHICH $200.OO HAS BEEN MET. THEY INDICATED THAT THOSE SHOULD BE MET WITH PT'S 9 DAY STAY AND THAT THEN PT SOULD BE COVERED AT 100% FOR SUPPLIES AND DRUG. ALEAH ORDRED HOME WOUND VAC THROUGH [facility]. PT HAS VAC ADMINISTERD HERE NOW. CM TO INFORM PT AND SPOUSE. CM FOLLOWING REGARDING DC PLANNING.
--- NOTE | 2020-09-29 11:58 | NUR ---
OSTOMY CARE NOTE POUCH EDGES LOOSE, LARGE AMT LOOSE BROWN STOOL. ALERT, VERY RECEPTIVE TO OSTOMY EDUCATION, STOMA PINK VIABLE VERY EDEMATOUS, 4 INCH ROBBY POUCH APPLIED W/ ADAPT RING UNDER WAFER, MESSAGE LEFT DR BARRAGAN OFFICE REGARDING STOMA EDEMA. SUPPIES AND TEACHING INFO LEFT AT BS, WILL ORDER SECURE START KIT FOR PT FOR HOME USE, BASEBALL CLUB MANAGER KHARI IN ROOM AT TIME OF OSTOMY CARE RECOMMENDATIONS; CHANGE POUCH Q 3-5 DAYS AND PRN, EMPTY PRN BASEBALL CLUB MANAGER AWARE
--- NOTE | 2020-09-29 15:49 | NUR ---
FAXED REFERRAL TO [facility] SPOKE WITH [facility] IN INTAKE THEY ARE [facility]YOND [facility] AND CANNOT ACCEPT. FAXED REFERRAL TO [facility] RECEIVED CONFIRMATION AND LEFT MSG WITH AMADEO IN ADM,
--- NOTE | 2020-09-29 16:55 | NUR ---
FA[facility]ED REFERRAL TO [facility] SPOKE WITH [facility] IN INTAKE SHE RECEIVED REFERRAL AND WILL CHECK PT'S INSURANCE TO SEE IF THEY ARE IN NETWORK WILL F/U WITH TOMORROW.
[2020-09-29 19:03] VITALS: BP 149/91
[2020-09-29 19:47] VITALS: BP 146/79
--- NOTE | 2020-09-29 20:15 | NUR ---
PT A&OX4, VSS, PAIN BUTTOCK. PAIN MEDICATION GIVEN. PATIENT HAS WOUND VAC RUNNING AT 125, SEROSANGUINEOUS DRAINAGE, 200CC AT SHIFT START AND 350 AT SHIFT END. IV PATENT AND FLUIDS RAN. UNABLE TO COMPLETE WOUND CARE TO BILAT LEGS AND ONCOMING NURSE AWARE. WOUND CARE TEAM TO COMPLETE CARES ON BUTTOCKS. PATIENT GIVEN COLOSTOMY INSTRUCTIONS FROM WOUND NURSE/COLOSTOMY NURSE. AT BEDSIDE AND CONCERNED ABOUT SWELLING IN LEGS. PATIENT PREFERS TO SIT IN RECLINER AND DOESNT WANT TO ELEVATE LEGS. WOUND CARE TEAM GAVE INSTRUCTIONS TO WRAP LEGS FROM TOES TO KNEES WITH KENNY TO ASSIST WITH SWELLING, INFO PASSED. NO SIGNS OF DISTRESS. WILL CONTINUE TO MONITOR.
--- NOTE | 2020-09-30 04:25 | NUR ---
VSS-AFEBRILE. LUNGS CLEAR-ROOM AIR. OOB AD KONSTANTIN-STEADY ON FEET. LEAK WITH WOUND VAC-WILL ATTEMPT TO PATCH LEAK TO CONTINUE THERAPY. PAIN WELL CONTROLLED WITH ALTERNATING PO AND IV PAIN MEDICATIONS. VOIDING WITHOUT DIFFICULTY. CALLS APPROPRIATELY FOR ANY NEEDED ASSISTANCE.
[2020-09-30 08:00] VITALS: BP 143/84
--- NOTE | 2020-09-30 09:53 | NUR ---
PT WILL LIKELY BE COVERED AT 100% FOR HOME INFUSION UPON DC. HOME WOUND VAC ORDERED. REFERRALS HAD BEEN SENT TO [facility] [place] AND THEY CAN'T ACCEPT. REFERRAL SENT TO [facility] AND THEY ARE REVIEWING. CM FOLLOWING REGARDING DC PLANNING.
--- NOTE | 2020-09-30 16:53 | NUR ---
FAXED REFERRAL TO [facility] WILL CONFIRM WITH GABRIELA/DESIISON SHE RECEIVED AND BED AVAILABILITY. [facility] P [phone]; FAX [phone]; GABRIELA/FERMIN [phone]
[2020-09-30 17:46] VITALS: BP 145/90
--- NOTE | 2020-09-30 19:07 | PATH ---
[facility] [address] [place] [address] PATHOLOGY RPT PROCEDURE Name: TOD RODRIGUEZ Room #: 449-I ADM IN M.R.#: [id number] Admission: 09/20/20 Date of : 79 Discharge: Report #: [id number] Path Case #: [id number] LCA Accession Number: [id number] . 01 Material submitted: . buttock - BILATERAL BUTTOCKS HIDRADENITIS. Modifiers: bilateral . 01 Clinical history: . DEBRIDEMENT COLOSTOMY . 02 Diagnosis: Bilateral buttocks hidradenitis, excision: - Mature keratinous cysts associated with acute and chronic inflammation as well as giant cell reaction and abscess formation. - Negative for malignancy. . (IUV:mml; 09/30/2020) QLM 09/30/2020 1631 Local . 02 Electronically signed: . Emperatriz Bassett MD, Pathologist NPI- [id number] . 01 Gross description: . The specimen is received in formalin, labeled "Tod Rodriguez, bilateral buttocks hidradenitis". Received are three segments of gonsalez-brown skin with attached underlying soft tissue measuring 23.8 x 18.9 x 10.5 cm in aggregate dimensions. The specimen is submitted representatively in cassettes A1 and A2. (CAA; 09/29/2020) QA/QA 09/29/2020 1016 Local . 02 Pathologist provided ICD-10: L72.9, L73.2 . 02 CPT . 833647 Specimen Comment: A courtesy copy of this report has been sent to [phone] Specimen Comment: [phone] Specimen Comment: Report sent to / DR TOBIAS Performed at: [address] [id number] MD Mauricio Perez MD Phone: [phone] Performed at: [address] [address] PATHOLOGY RPT PROCEDURE Name: TOD RODRIGUEZ Room #: 449-I ADM IN M.R.#: [id number] Admission: 09/20/20 Date of : 79 Discharge: Report #: [id number] Path Case #: [id number] [address] [id number] MD Emperatriz Bassett MD Phone: [phone]
[2020-09-30 19:34] VITALS: BP 139/81
--- NOTE | 2020-09-30 20:44 | NUR ---
PT A&OX4, VSS, GENERAL PAIN. DRESSING TO BILAT CALF CHANGED. AT BEDSIDE. WOUND VAC IN PLACE, SUCTION AT 125, SEROSANGUINEOUS DRAINAGE. PATIENT HAS ORDER FOR PICC, IT WILL BE PLACED AT TIME OF DISCHARGE. CARDIOLOGY CONSULT PLACED FOR SWELLING BILAT LEGS, CHF. IV FLUIDS DC'D D/T SWELLING. CALLED I&D DOCTOR TO GET PREDNISONE TAPERED PER HOSPITALIST, I&D ASKED ME TO REFER TO DR SAL. PASSED ALONG TO CONTACT CENTER ANALYST TO HAVE THEM CALL MORNING. PATIENT ENCOURAGED TO ELEVATE LEGS. WOUND CARE GAVE ORDERS TO WRAP LEGS FROM FEET TO KNEES TO HELP WITH SWELLING. NO SIGNS OF DISTRESS. WILL CONTINUE TO MONITOR.
--- NOTE | 2020-10-01 01:14 | NUR ---
PT IS A/O X4 AND IS UP AD KONSTANTIN. ROOM AIR. COLOSTOMY IN PLACE AND DRAINING DARK BROWN LOOSE STOOL. USES BR TO VOID. WOUND VAC IN PLACE AND HOOKED UP TO SUCTION AT 125. LEG WRAPS ARE IN PLACE AND C/D/I. HS BS WNL AND DID NOT REQUIRE LISPRO. C/O PAIN TO BUTTOCKS. PRN PAIN MEDICATION GIVEN DIRECTED. PT CALLS OUT APPROPRIATELY.
[2020-10-01 05:33] LABS: HEMOGLOBIN 6.7 gm/dL (14.0-18.0); MCHC 30.7 g/dL (28.0-37.0); MCV 71.9 fL (80.0-100.0); PLATELET COUNT 489 thou/uL (150-400); RBC 3.06 mil/uL (4.50-6.00)
[2020-10-01 05:54] LABS: CALCIUM 8.9 mg/dL (8.5-10.1); CREATININE 1.3 mg/dL (0.7-1.3); POTASSIUM 5.1 mmol/L (3.5-5.1); TOTAL BILIRUBIN 0.2 mg/dL (0.2-1.0); TOTAL PROTEIN 7.3 g/dL (6.4-8.2)
[2020-10-01 10:04] LABS: ABSOLUTE NEUTROPHILS 20.3 thou/uL (1.4-8.2)
[2020-10-01 10:06] LABS: ANISOCYTOSIS 2+; MICROCYTES 1+; POIKILOCYTOSIS SLIGHT; POLYCHROMASIA 1+; TARGET CELLS 1+
[2020-10-01 10:07] LABS: HYPOCHROMASIA 1+
--- NOTE | 2020-10-01 10:24 | 2DMMODE ---
[facility] [address] [place] [address] 2 D/M-MODE ECHOCARDIOGRAM Name: TOD RODRIGUEZ Room #: 449-I ADM IN M.R.#: [id number] Admission: 09/20/20 Attend Phys: Ash Norton MD Discharge: Date of : 79 Report #: [id number] THIS REPORT FOR: cc: Jose Garcia James A. DO Lammoglia, Francisco J. MD ~ APPROVED REPORT Study performed: 10/01/2020 09:30:45 EXAM: Comprehensive 2D, Doppler, and color-flow Echocardiogram Patient Location: Bedside Room #: [facility] Status: routine BSA: 1.97 HR: 67 bpm BP: 138/78 mmHg Rhythm: NSR Other Information Study Quality: Good Indications Congestive Heart Failure COPD Diabetes Cardiomyopathy Hypertension/HDD 2D Dimensions RVDd: 37.65 mm IVSd: 8.42 (7-11mm) LVOT Diam: 22.96 (18-24mm) LVDd: 58.68 mm PWd: 8.62 (7-11mm) Ascending Ao: 27.26 (22-36mm) LVDs: 40.36 (25-40mm) Left Atrium: 42.26 (27-40mm) Aortic Root: 30.96 mm IVC: 16.00 mm Volumes Left Atrial Volume (Systole) Single Plane 4CH: 41.09 mL Single Plane 2CH: 41.74 mL LA ESV Index: 23.00 mL/m2 [facility] [address] [place] [address] 2 D/M-MODE ECHOCARDIOGRAM Name: TOD RODRIGUEZ Room #: 449-I ADM IN M.R.#: [id number] Admission: 09/20/20 Attend Phys: Ash Norton MD Discharge: Date of : 79 Report #: [id number] Aortic Valve AoV Peak Luca.: 1.67 m/s AO Peak Gr.: 11.11 mmHg LVOT Max P.69 mmHg LVOT Max V: 1.19 m/s STEPHEN Vmax: 2.96 cm2 Mitral Valve E/A Ratio: 1.1 MV Decel. Time: 170.08 ms MV E Max Luca.: 1.14 m/s MV A Luca.: 1.04 m/s MV PHT: 49.32 ms IVRT: 83.04 ms Pulmonary Valve PV Peak Luca.: 1.22 m/s PV Peak Gr.: 5.93 mmHg Pulmonary Vein P Vein S: 0.66 m/s P Vein A: 0.26 m/s P Vein D: 0.56 m/s P Vein A Dur.: 106.1 msec P Vein S/D Ratio: 1.18 Tricuspid Valve TR Peak Luca.: 2.50 m/s TR Peak Gr.: 25.03 mmHg PA Pressure: 30.00 mmHg Left Ventricle The left ventricle is normal size. There is normal LV segmental wall motion. There is normal left ventricular wall thickness. Left ventricular systolic function is normal. The left ventricular ejection fraction is within the normal range. LVEF is 55%. The left ventricular diastolic function is normal. Right Ventricle The right ventricle is normal size. The right ventricular systolic function is normal. Atria The left atrium size is normal. The right atrium size is normal. Aortic Valve The aortic valve is normal in structure. No aortic regurgitation is present. There is no aortic valvular stenosis. [facility] [place] [place] [address] 2 D/M-MODE ECHOCARDIOGRAM Name: TOD RODRIGUEZ Room #: 449-I ADM IN M.R.#: [id number] Admission: 09/20/20 Attend Phys: Ash Norton MD Discharge: Date of : 79 Report #: [id number] Mitral Valve The mitral valve is normal in structure. Trace mitral regurgitation. No evidence of mitral valve stenosis. Tricuspid Valve The tricuspid valve is normal in structure. There is trace tricuspid regurgitation. Estimated PAP 30 mmHg. There is no pulmonary hypertension. Pulmonic Valve The pulmonary valve is normal in structure. There is no pulmonic valvular regurgitation. Great Vessels The aortic root is normal in size. IVC is normal in size and collapses >50% with inspiration. Pericardium There is no pericardial effusion. <Conclusion> The left ventricle is normal size. LVEF is 55%. Left ventricular systolic function is normal. The left ventricular ejection fraction is within the normal range. LVEF is 55%. The right ventricle is normal size. The right ventricular systolic function is normal. The aortic valve is normal in structure. The mitral valve is normal in structure. Trace mitral regurgitation. The tricuspid valve is normal in structure. There is trace tricuspid regurgitation. Estimated PAP 30 mmHg. There is no pulmonary hypertension. The pulmonary valve is normal in structure. There is no pericardial effusion. No echocardiographic evidence of external mass compressing cardiac structures <ELECTRONICALLY SIGNED> By: Donato Rogers MD 10/01/20 1024 1024 1024 Donato Rogers MD /INF
--- NOTE | 2020-10-01 11:18 | NUR ---
OSTOMY CARE NOTE; ALERT, ORIENTED, POUCH INTACT, NO LEAKAGE, STOMA REMAINS EDEMATOUS, PT ABLE TO EMPTY APPLIANCE ON OWN, QUESTIONS ANSWERED REGARDING OSTOMY CARE, INFO AND SUPPLIES AT BS, WILL CONT TO FOLLOW RECOMMENDATIONS; CONT 4' POUCH UNTIL STOMA LESS EDEMATOUS, CHANGE Q3-5 DAYS AND PRN, EMPTY PRN RADIO FREQUENCY DESIGN ENGINEER AWARE
--- NOTE | 2020-10-01 13:16 | NUR ---
VAT CONSULTED FOR PICC PLACEMENT. PT DID CONSENT TODAY FOR PICC. EVONNE BRACHIAL WAS WIDELY PATENT WITH USG. 4FR SL POWER PICC TRIMMED TO 46CM INSERTED TO 0CM EXTERNAL WITH PEAKED P-WAVES ON 3CG FOR PICC CINFIRMATION. PT TOLERATED WELL. PICC RELEASED FOR IMMEDIATE USE PER PROTOCOL. WALLET CARD GIVEN TO PATIENT
[2020-10-01 13:20] VITALS: BP 114/64; BP 125/71; BP 143/76
--- NOTE | 2020-10-01 15:21 | NUR ---
[facility] GO AUTH TO ACCEPT PT. PT IS RECEIVING 1 UNIT OF BLOOD THIS DAY. PT HAD PICC PLACED THIS DAY. PHYSICIAN INDICATED PROBABLE DC TOMORROW. CM AWAITING DETERMINATION FROM [facility] IF THEY WILL TAKE THIS WEEKEND OR NOT UNTIL SUNDAY.
--- NOTE | 2020-10-01 15:40 | NUR ---
PATIENT PROGRESSING TOWARDS THE PLAN OF CARE. 1 U OF [facility] TRANSFUSED.
--- NOTE | 2020-10-01 16:33 | NUR ---
AUTH RECIEVED FOR PT TO DC TO [facility] TOMORROW. THEY WANT ORDERS FAXED BY 10:00AM TO . THEY WANT [facility] TRANSPORT ARRANGED FOR 1300. [facility] FORM ON CHART NEEDS TO BE FAXED AND THEN CALLED TO SCHEDULE. CALL REPORT TO . PT AND SPOUES AWARE AND AGREEABLE. CHART COPY MADE. NO OTHER CM INTERVENTION INDICATED. CASE CLOSED.
[2020-10-01 16:45] VITALS: BP 160/78
[2020-10-01 17:00] VITALS: BP 167/76
[2020-10-01 17:16] VITALS: BP 169/89
[2020-10-01 18:32] LABS: HEMATOCRIT 26.6 % (42.0-52.0); HEMOGLOBIN 7.9 gm/dL (14.0-18.0)
[2020-10-01 19:54] VITALS: BP 137/84
--- NOTE | 2020-10-02 04:25 | NUR ---
PT IS A/O X4 AND IS UP AD KONSTANTIN. RA, COLOSTOMY IN PLACE AND DRAINING DARK BROWN LIQUID STOOL. VOIDS PER TOILET. C/O PAIN. PRN PAIN MEDICATION GIVEN DIRECTED. CALLS OUT APPROPRIATELY.
[2020-10-02 05:38] LABS: HEMATOCRIT 24.4 % (42.0-52.0); HEMOGLOBIN 7.2 gm/dL (14.0-18.0); MCH 22.4 pg (26.0-34.0); MCHC 29.5 g/dL (28.0-37.0); MCV 75.9 fL (80.0-100.0); RBC 3.22 mil/uL (4.50-6.00); RDW 23.7 % (10.5-14.5); WBC 28.1 thou/uL (4.0-11.0)
[2020-10-02 05:51] LABS: CALCIUM 8.9 mg/dL (8.5-10.1); CREATININE 1.2 mg/dL (0.7-1.3); MAGNESIUM 1.9 mg/dL (1.8-2.4); POTASSIUM 4.5 mmol/L (3.5-5.1)
[2020-10-02 07:41] VITALS: BP 154/96
[2020-10-02 08:27] VITALS: BP 154/96
[2020-10-02] MEDS ORDERED: PERCOCET PO (10:44)
[2020-10-02] MEDS ORDERED: BENICAR20 MG PO (10:44)
[2020-10-02] MEDS ORDERED: HUMALOG100 UNIT/1 SUBQ (10:44)
[2020-10-02] MEDS ORDERED: LANTUS SUBQ (10:44)
[2020-10-02] MEDS ORDERED: PREDNISONE 20 M20 M1 PO (10:44)
--- NOTE | 2020-10-02 11:57 | NUR ---
FAXED DISCHARGE ORDERS, SUMMARY AND NEGATIVE COVID RESULT (09/20/20) TO [facility]. [facility] WILL TRANSPORT PATIENT BETWEEN 13:00-14:00. CONFIRMED WITH CHRYSTAL/WEEKEND LIAISON OF [facility] OF TIME OF TRANSPORT AND DISCHARGE DOCUMENTS WERE RECEIVED. SPOKE TO PATIENT REGARDING TIME OF TRANSPORT. LEFT MESSAGE WITH SPOUSE. UNIT RN NOTIFIED. DISCHARGE ORDERS AND SUMMARY COMPLETE IN CHART COPY. [facility] ORDERS CALLED TO P [phone]; FAX [phone] [facility]STAL/WEEKEND LIAISON FOR [facility] P [phone]; M [phone]
--- NOTE | 2020-10-02 12:28 | NUR ---
ASSUMED PT CARE THIS AM. PT VSS, A&OX4. PT PLEASANT AND CALLS APPROPRIATELY WHEN NEEDED. COLOSTOMY IN PLACE, STOOL IS BROWN AND THIN. PATIENT ABLE TO MANAGE INDEPENDENTLY. WOUND VAC AT 125. LYMPHEDEMA WRAPS IN PLACE. PATIENT AMBULATORY AROUND UNIT, USING A URINAL WHEN NEEDED. TOOK MEDS WELL WITHOUT COMPLAINT THIS AM. IV PATENT, MEDS INFUSED WITHOUT ISSUE. ON ROOM AIR. PAIN BEING MANAGED WITH MEDS PER EMAR. USING CALL LIGHT APPROPRIATELY WHEN NEEDED.
== END 2020-10-02 15:38 | DRG 853 ==
LOC: ER 15:45 → 4W 18:46 → EROBS 18:46 → 4W 18:46 → 4S 20:59 → 4W 21:26
PROVIDERS: Internal Medicine; Nurse Practitioner; Nurse Practitioner Family; Specialist; Surgery; ADMIT Internal Medicine; ATTEND Internal Medicine
PROC: 0KBT0ZZ Excision of Left Lower Leg Muscle, Open Approach (ICD-10-PCS; principal; 2020-09-24)
PROC: 0KBP0ZZ Excision of Left Hip Muscle, Open Approach (ICD-10-PCS; principal; 2020-09-24)
PROC: 0DBQ0ZZ Excision of Anus, Open Approach (ICD-10-PCS; principal; 2020-09-24)
PROC: 0KBS0ZZ Excision of Right Lower Leg Muscle, Open Approach (ICD-10-PCS; principal; 2020-09-24)
PROC: 0KBN0ZZ Excision of Right Hip Muscle, Open Approach (ICD-10-PCS; principal; 2020-09-24)
PROC: 30233N1 Transfusion of Nonautologous Red Blood Cells into Peripheral Vein, Percutaneous Approach (ICD-10-PCS; 2020-09-25)
PROC: 0KBP0ZZ Excision of Left Hip Muscle, Open Approach (ICD-10-PCS; 2020-09-27)
PROC: 0KBN0ZZ Excision of Right Hip Muscle, Open Approach (ICD-10-PCS; 2020-09-27)
PROC: 0D1L0Z4 Bypass Transverse Colon to Cutaneous, Open Approach (ICD-10-PCS; 2020-09-27)
PROC: 05HY33Z Insertion of Infusion Device into Upper Vein, Percutaneous Approach (ICD-10-PCS; 2020-10-01)
PROC: B54MZZA Ultrasonography of Right Upper Extremity Veins, Guidance (ICD-10-PCS; 2020-10-01)
DX: A41.9 Sepsis, unspecified organism (principal); E43 Unspecified severe protein-calorie malnutrition; I50.22 Chronic systolic (congestive) heart failure; L97.829 Non-pressure chronic ulcer of other part of left lower leg with unspecified severity; L97.819 Non-pressure chronic ulcer of other part of right lower leg with unspecified severity; I42.8 Other cardiomyopathies; L02.818 Cutaneous abscess of other sites; L73.2 Hidradenitis suppurativa; F17.210 Nicotine dependence, cigarettes, uncomplicated; I11.0 Hypertensive heart disease with heart failure; J44.9 Chronic obstructive pulmonary disease, unspecified; D72.829 Elevated white blood cell count, unspecified; M19.90 Unspecified osteoarthritis, unspecified site; D50.9 Iron deficiency anemia, unspecified; E78.5 Hyperlipidemia, unspecified; L98.419 Non-pressure chronic ulcer of buttock with unspecified severity; Z20.822 Contact with and (suspected) exposure to COVID-19; Z79.82 Long term (current) use of aspirin; Z79.899 Other long term (current) drug therapy; Z91.14 Patient's other noncompliance with medication regimen; Z79.84 Long term (current) use of oral hypoglycemic drugs; Z68.24 Body mass index [BMI] 24.0-24.9, adult
CPT/HCPCS: 10040; 27000; 50010; 50101; 50386; 50403; 56524; 56525; 57092; 57119; 57120; 62110; 62900; 70005

== ENCOUNTER → 2020-10-20 | Outpatient (CLI) | payer OTHER ==
[~2020-10-20] MED LIST changes: +BENICAR20 MG PO; +HUMALOG100 UNIT/1 SUBQ; +LANTUS SUBQ; +PERCOCET PO; +PREDNISONE 20 M20 M1 PO; +TRULICITY0.75 MG/0. SUBQ
== END ==
LOC: HYPER 09:58
PROVIDERS: ATTEND Emergency Medicine
DX: T81.31XA Disruption of external operation (surgical) wound, not elsewhere classified, initial encounter (principal); E11.622 Type 2 diabetes mellitus with other skin ulcer; L97.312 Non-pressure chronic ulcer of right ankle with fat layer exposed; L97.322 Non-pressure chronic ulcer of left ankle with fat layer exposed; L97.412 Non-pressure chronic ulcer of right heel and midfoot with fat layer exposed; L73.2 Hidradenitis suppurativa; E11.40 Type 2 diabetes mellitus with diabetic neuropathy, unspecified; I50.9 Heart failure, unspecified; J44.9 Chronic obstructive pulmonary disease, unspecified; Z87.891 Personal history of nicotine dependence; Z93.3 Colostomy status; Z79.82 Long term (current) use of aspirin; Z79.4 Long term (current) use of insulin; Y92.238 Other place in hospital as the place of occurrence of the external cause; Y83.8 Other surgical procedures as the cause of abnormal reaction of the patient, or of later complication, without mention of misadventure at the time of the procedure

== ENCOUNTER → 2020-11-04 | Outpatient (CLI) | payer OTHER | LOC: HYPER 14:42 | PROVIDERS: ATTEND Emergency Medicine | DX: T81.31XD Disruption of external operation (surgical) wound, not elsewhere classified, subsequent encounter (principal); E11.622 Type 2 diabetes mellitus with other skin ulcer; L98.412 Non-pressure chronic ulcer of buttock with fat layer exposed; L97.322 Non-pressure chronic ulcer of left ankle with fat layer exposed; L97.312 Non-pressure chronic ulcer of right ankle with fat layer exposed; L73.2 Hidradenitis suppurativa; E11.40 Type 2 diabetes mellitus with diabetic neuropathy, unspecified; I50.9 Heart failure, unspecified; J44.9 Chronic obstructive pulmonary disease, unspecified; Z87.01 Personal history of pneumonia (recurrent); Z87.891 Personal history of nicotine dependence; Z79.82 Long term (current) use of aspirin; Z79.899 Other long term (current) drug therapy; Z79.4 Long term (current) use of insulin; Y83.8 Other surgical procedures as the cause of abnormal reaction of the patient, or of later complication, without mention of misadventure at the time of the procedure ==

== ENCOUNTER → 2020-11-18 | Outpatient (CLI) | payer OTHER | LOC: HYPER 10:45 | PROVIDERS: ATTEND Emergency Medicine | DX: T81.31XD Disruption of external operation (surgical) wound, not elsewhere classified, subsequent encounter (principal); E11.622 Type 2 diabetes mellitus with other skin ulcer; L98.412 Non-pressure chronic ulcer of buttock with fat layer exposed; L97.322 Non-pressure chronic ulcer of left ankle with fat layer exposed; L97.312 Non-pressure chronic ulcer of right ankle with fat layer exposed; L73.2 Hidradenitis suppurativa; E11.40 Type 2 diabetes mellitus with diabetic neuropathy, unspecified; I50.9 Heart failure, unspecified; J44.9 Chronic obstructive pulmonary disease, unspecified; Z87.01 Personal history of pneumonia (recurrent); Z87.891 Personal history of nicotine dependence; Z79.82 Long term (current) use of aspirin; Z79.899 Other long term (current) drug therapy; Z79.4 Long term (current) use of insulin; Y83.8 Other surgical procedures as the cause of abnormal reaction of the patient, or of later complication, without mention of misadventure at the time of the procedure ==

== ENCOUNTER → 2020-12-02 | Outpatient (CLI) | payer OTHER | LOC: HYPER 08:33 | PROVIDERS: ATTEND Emergency Medicine | DX: T81.31XD Disruption of external operation (surgical) wound, not elsewhere classified, subsequent encounter (principal); E11.622 Type 2 diabetes mellitus with other skin ulcer; L98.412 Non-pressure chronic ulcer of buttock with fat layer exposed; L97.322 Non-pressure chronic ulcer of left ankle with fat layer exposed; L97.312 Non-pressure chronic ulcer of right ankle with fat layer exposed; L73.2 Hidradenitis suppurativa; E11.40 Type 2 diabetes mellitus with diabetic neuropathy, unspecified; I50.9 Heart failure, unspecified; J44.9 Chronic obstructive pulmonary disease, unspecified; Z87.01 Personal history of pneumonia (recurrent); Z87.891 Personal history of nicotine dependence; Z93.1 Gastrostomy status; Z79.82 Long term (current) use of aspirin; Z79.4 Long term (current) use of insulin; Y83.8 Other surgical procedures as the cause of abnormal reaction of the patient, or of later complication, without mention of misadventure at the time of the procedure ==

== ENCOUNTER 2020-12-09 10:23 | Inpatient (IN) | payer OTHER ==
[~2020-12-09] VITALS: Ht 180.3 cm; Wt 90.7 kg
[~2020-12-09 10:23] MED LIST changes: +CARVEDILOL25 MG PO; +LEVEMIR FL100 UNIT/2 SUBQ; +TRULICITY1.5 MG/0.5 SUBQ
[2020-12-09 12:03] LABS: CALCIUM 8.9 mg/dL (8.5-10.1); CREATININE 1.9 mg/dL (0.7-1.3); POTASSIUM 4.8 mmol/L (3.5-5.1)
[2020-12-09 13:02] LABS: HEMATOCRIT 37.3 % (42.0-52.0); HEMOGLOBIN 11.5 gm/dL (14.0-18.0); MCH 22.2 pg (26.0-34.0); MCHC 30.7 g/dL (28.0-37.0); MCV 72.2 fL (80.0-100.0); RBC 5.17 mil/uL (4.50-6.00); RDW 16.5 % (10.5-14.5); WBC 19.1 thou/uL (4.0-11.0)
[2020-12-09 13:15] LABS: CREATININE 1.7 mg/dL (0.7-1.3); POTASSIUM 4.6 mmol/L (3.5-5.1)
[2020-12-09 13:21] LABS: ALBUMIN 2.7 g/dL (3.4-5.0); TOTAL BILIRUBIN 0.3 mg/dL (0.2-1.0); TOTAL PROTEIN 8.3 g/dL (6.4-8.2)
[2020-12-09 17:57] VITALS: BP 108/72
--- NOTE | 2020-12-09 17:59 | NUR ---
ASSUMED PT CARE AT 1630 FROM PACU. PT IS ALERT & ORIENTED X4. PT HAS IV SITE ON R HAND 20 GAUGE. PT IS UP AD KONSTANTIN. PT IS ACCUCHECK ACHS. PT HAS COLOSTOMY. CANCELLED SURGERY TODAY DUE TO HIGH BLOOD SUGAR, NAUSEA AND CHILLS. PT AT THE BEDSIDE. PT ON THE BED, BED ON THE LOWEST POSITION, SIDE RAILS UP, CALL LIGHT WITHIN REACH. WILL CONTINUE TO MONITOR PT. FOLLOW POC.
[2020-12-09 21:11] VITALS: BP 102/59
[2020-12-10 00:42] VITALS: BP 148/81
[2020-12-10 06:03] LABS: HEMATOCRIT 33.2 % (42.0-52.0); HEMOGLOBIN 10.2 gm/dL (14.0-18.0); MCH 22.6 pg (26.0-34.0); MCHC 30.9 g/dL (28.0-37.0); MCV 73.3 fL (80.0-100.0); RBC 4.52 mil/uL (4.50-6.00); RDW 16.1 % (10.5-14.5); WBC 15.6 thou/uL (4.0-11.0)
[2020-12-10 06:09] LABS: CALCIUM 8.4 mg/dL (8.5-10.1); CREATININE 2.1 mg/dL (0.7-1.3); POTASSIUM 4.4 mmol/L (3.5-5.1)
--- NOTE | 2020-12-10 06:52 | EKG ---
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: FSCHWALBE : 1975 Requested By: Norberto Dawson Order Number: [id number] MD: Domenic Peacock Measurements Intervals [place] Rate: 108 P: 54 NE: 139 QRS: 44 QRSD: 99 T: 139 QT: 317 QTc: 425 Interpretive Statements Sinus tachycardia Abnormal T, consider ischemia, lateral leads Baseline wander in lead(s) I,III,aVL Compared to ECG 09/26/2019 13:00:34 No significant changes Electronically Signed On 12-10-2020 6:52:16 CDT by Domenic Peacock [email or web address] <ELECTRONICALLY SIGNED> By: Domenic Peacock MD, [facility] 12/10/20 [id number] Domenic Peacock MD, [facility] /EPI
[2020-12-10 07:15] VITALS: BP 103/56
--- NOTE | 2020-12-10 07:42 | NUR ---
PT AOX4, NOTABLY LETHARGIC. PT DENIES PAIN AND SOB WHILE ON ROOM AIR. PT TOLERATING PO INTAKE OF FLUIDS AND CARB CONTROLLED DIET WITHOUT ISSUE. PT WITHOUT NAUSEA OR EMESIS. PT AMBULATING INDEPENDENTLY IN ROOM AND TO BATHROOM. SENSATION INTACT, CAPILLARY REFILL LESS THAN 3SEC, AND PERIPHERAL PULSES PALPABLE IN ALL EXTREMITIES. PT MAINTAINS PERSONAL WOUND VAC, CANNISTER CHANGED, YELLOW-BROWNISH DRAINAGE NOTED IN PREVIOUS CANNISTER. COLOSTOMY BAG IN PLACE AND INTACT, STOMA PROTRUDING AND PINK. PT ASSESSED WITH TEMPERATURE OF 103.0, SEPSIS SCREEN COMPLETED, PT MEETING CRITERIA. ONCALL PROVIDER NOTIFIED, EMAR UPDATED. PT ENCOURAGED TO NOTIFY STAFF FOR ALL NEEDS, CALL LIGHT WITHIN REACH, BED LOCKED IN LOWEST POSITION, FREQUENT MONITORING WILL CONTINUE.
--- NOTE | 2020-12-10 10:08 | NUR ---
Assess due to pt with hydrandenitis, chronic buttock wound, bilateral LE. Hx diverting colostomy in 09/2020 to assist with healing. Admit for pending skin grafting procedure, which had to be deferred due to febrile, and hyperglycemic with workup pending. Also with CHF, volume overload. Wts appear 25 lb higher than last admission. Good appetite and uses Premier protein at home. Will start equivalent Ensure Max. Recommend add 2g Na to diet order, otherwise low nutrition risk with interventions in place.
--- NOTE | 2020-12-10 11:58 | NUR ---
Received awake on bed. Due medications given as prescribed. On MS, not on telemetry; no complains and signs of chest pain, crushing sensation and heaviness. Assisted in ADLs. Vital signs stable. On room air. On carb controlled diet- tolerating well; no nausea, no vomiting and no abdominal pain noted. On blood sugar monitoring, taken and recorded accordingly; with sliding scale insulin ordered. No febrile episode noted this AM. With colostomy in place- stoma- pink and moist; output measured and recorded accordingly. Continent of urine- able to use urinal and go to the toilet independently. With NS at 126cc/hr, infusing well at R FA; on IV antibiotics as well. Supposed to go for surgery yesterday but has been rescheduled due to high blood sugars- a/w new surgery schedule and clearance. With wound at buttocks and bilateral LE- dressing in place- wound nurse consult made- a/w rounds and recommendations. No complains of pain made during assessment. Pt able to walk in the hallway, asking if he can leave the unit- explained pt hospital protocol and agreed with it. With orders for Covid swab, reviewed pt's orders- swab was done yesterday- as per Dr Motta to cancel order for today. To continue monitoring patient.
--- NOTE | 2020-12-10 12:40 | NUR ---
ASSESSMENT: CM REVIEWED CHART AND SPOKE WITH PATIENT. PT IS ALERT AND ORIENTED X4. PT WAS ADMITTED DUE TO COMING IN FOR AN ELECTIVE GRAFT FOR CHRONIC WOUNDS BUT HAD CHILLS AND N/V PRE-OP. PT WAS ADMITTED AND TEST FOR COVID WHICH WAS NEGATIVE. PT IS WELL KNOWN TO DR. BARRAGAN. PT REPORTS THAT HE WAS CURRENTLY LIVING AT HOME WITH HIS IN A HOUSE AND GETTING SERVICES THROUGH A . HE REPORTS PRIOR TO THAT HE WAS AT [facility]. PT REPORTS BEING FULLY INDEPENDENT WITH ADLS AND AMBULATION. PT STATES HAVING 4 STEPS TO ENTER THE HOME AND ABOUT 20 STEPS WITH HANDRAILS TO HIS BASEMENT. PT IS HOPEFUL HE CAN RETURN DIRECTLY HOME WITH [facility] AT DISCHARGE. PLANS FOR POSSIBLE SURGERY AND AWAITING PUT FROM DR. BARRAGAN AND WOUND CARE. PT IS ON IV ANBX AND CURRENTLY HAS WOUND VAC. CM NOTIFIED [facility] OF PATIENTS ADMISSIONS AND FAXED UPDATED CLINICAL. PENDING PTS PRGORESSION CM SPOKE WITH A HH AND THEY CAN ACCEPT HIM BACK ON SERVICES IF ABLE TO GO HOME WITH HH AT DISCHARGE AND WILL NEED ORDERS FAXED TO [phone]. HOWEVER IF PATIENT IS NEEDING TO RETURN HOME ON IV ANBX OR WOUND VAC THEY NEED BE TO NOTIFIED FIRST [facility] :[phone]. CM WILL CONTINUE TO FOLLOW TO ASSIST NEEDED.
[2020-12-10 18:44] VITALS: BP 130/86
[2020-12-10 20:40] VITALS: BP 116/72
--- NOTE | 2020-12-11 02:43 | NUR ---
PT IS A/O X4 AND IS UP AD KONSTANTIN. DENIES C/O PAIN OR DISCOMFORT BUT IS CONCERNED THAT WOUND CARE HAS NOT YET CHANGED HIS WOUND VAC TO HIS WOUND ON HIS BUTTOCKS. WILL ENDORSE THIS WITH DAY SHIFT NURSE AND WILL CALL BUMPER OPERATOR TO LEAVE MESSAGE. VSS. AFEBRILE. INSULIN GIVEN AT HS PRESCRIBED. COLOSTOMY APPLIANCE CHANGED THIS NOC BY PT. UA COLLECTED AND SENT TO LAB. PT IS UP AD KONSTANTIN AND CALLS OUT APPROPRIATELY. CALL LIGHT IS WITHIN REACH
[2020-12-11 03:20] VITALS: BP 132/87
[2020-12-11 05:03] LABS: HEMATOCRIT 32.8 % (42.0-52.0); HEMOGLOBIN 10.1 gm/dL (14.0-18.0); MCH 22.5 pg (26.0-34.0); MCHC 30.8 g/dL (28.0-37.0); MCV 73.1 fL (80.0-100.0); RBC 4.49 mil/uL (4.50-6.00); WBC 12.5 thou/uL (4.0-11.0)
[2020-12-11 05:12] LABS: URINE BILIRUBIN NEGATIVE (Negative); URINE BLOOD NEGATIVE (Negative); URINE CLARITY CLEAR; URINE COLOR YELLOW; URINE GLUCOSE-RANDOM* NEGATIVE (Negative); URINE KETONES NEGATIVE (Negative); URINE LEUKOCYTES NEGATIVE (Negative); URINE NITRITE NEGATIVE (Negative); URINE PROTEIN (DIPSTICK) NEGATIVE (Negative); URINE UROBILINOGEN 0.2 E.U./dl (0.2-1.0)
[2020-12-11 05:20] LABS: ALBUMIN 2.4 g/dL (3.4-5.0); CALCIUM 8.5 mg/dL (8.5-10.1); CREATININE 1.6 mg/dL (0.7-1.3); PHOSPHORUS 5.3 mg/dL (2.6-4.7)
[2020-12-11] MEDS ORDERED: FREESTYLE LIBR1 EAC2 MISCELL (07:57)
[2020-12-11 08:56] VITALS: BP 124/84
--- NOTE | 2020-12-11 13:48 | NUR ---
ASSUMED CARE OF PT AT 0700 THIS MORNING. PT WAS ADMITTED FOR SEPSIS AND HAS WOUNDS TO BOTH LOWER LEGS/ANKLE AND COCCYX AREA. WOUNDVAC IN PLACE WHERE THE ULCER ON THE COCCYX AREA. NONHEALING WOUND ON THE LEFT LOWER LEG WITH KENNY AND C/D/I DRESSING. HEALING WOUND ON THE RIGHT LEG WITH KENNY AND C/D/I DRESSING. PT HAS NO COMPLAINT AT THIS TIME. ASSESSMENT A NOTED ON CHART AND OTHERWISE UNREMARKABLE. CALL LIGHT AND OTHER NEEDS ARE PLACED WITHIN REACH OT THE PT.MEDS AND TX GIVEN NEEDED AND SCHEDULED.
[2020-12-11 14:34] LABS: URINE BILIRUBIN NEGATIVE (Negative); URINE BLOOD NEGATIVE (Negative); URINE CLARITY CLEAR; URINE COLOR YELLOW; URINE GLUCOSE-RANDOM* NEGATIVE (Negative); URINE KETONES NEGATIVE (Negative); URINE LEUKOCYTES-REFLEX NEGATIVE (Negative); URINE NITRITE-REFLEX NEGATIVE (Negative); URINE PROTEIN (DIPSTICK) NEGATIVE (Negative); URINE UROBILINOGEN 0.2 E.U./dl (0.2-1.0)
[2020-12-11 15:36] VITALS: BP 110/74
[2020-12-11 19:41] VITALS: BP 114/70
--- NOTE | 2020-12-11 23:35 | NUR ---
PT AMBULATING INDEPENDENTLY AND IS TOLERATING WELL. VOIDING PER TOILET. DENIES PAIN. DENIES NAUSEA. CONCERNED WOUND VAC DRSG HAS NOT BEEN CHANGED. WILL PASS ON. RESTING COMFORTABLY. CALL LIGHT WITHIN REACH. FREQUENT OBSERVATION.
[2020-12-12 04:47] VITALS: BP 129/80
[2020-12-12 09:12] VITALS: BP 134/79
--- NOTE | 2020-12-12 10:47 | NUR ---
ASSUMED PT CARE THIS AM. PT IS ALERT & ORIENTED X4. PT HAS IV SITE ON R FA. PT IS UP AD KONSTANTIN AND WALL AROUND THE HALLWAY THIS AM. PT HAS COLOSTOMY. SPENT SPUTUM CULTURE THIS AM. PT IS ACCUCHECK ACHS. CHANGE WOUND DRESSING ON L LE, YELLOW DRAINAGE NOTED. PT TOLERATED MEDICATION AND DIET WELL THIS AM. PT ON THE BED WATCHING TV, BED ON THE LOWEST POSITION, SIDE RAILS UP, CALL LIGHT WITHIN REACH. WILL CONTINUE TO MONITOR PT. FOLLOW POC.
[2020-12-12 17:59] VITALS: BP 129/73
[2020-12-12 19:44] VITALS: BP 125/76
[2020-12-13 05:20] LABS: ABSOLUTE NEUTROPHILS 3.7 thou/uL (1.4-8.2); BASOPHILS 0.6 % (0.0-2.0); EOSINOPHILS 4.7 % (0.0-3.0); HEMATOCRIT 33.5 % (42.0-52.0); HEMOGLOBIN 10.3 gm/dL (14.0-18.0); LYMPHOCYTES 38.7 % (24.0-44.0); MCH 22.5 pg (26.0-34.0); MCHC 30.7 g/dL (28.0-37.0); MCV 73.3 fL (80.0-100.0); MONOCYTES 12.8 % (1.0-8.0); PLATELET COUNT 354 thou/uL (150-400); POLYS 43.2 % (36.0-66.0); RBC 4.57 mil/uL (4.50-6.00); WBC 8.7 thou/uL (4.0-11.0)
--- NOTE | 2020-12-13 06:38 | NUR ---
ASSUMED CARE OF PT AT 1900. PT IS UP INDEPENDENTLY AND WALKS THE UNIT OFTEN. ROOM AIR. COLOSTOMY IN PLACE. PT DOES SELF CARE. VOIDS PER TOILET. WOUND CHANGE TO BOTTOM COMPLETED. CURRENT DRESSING IS C/D/I. PT IS PROGRESSING TOWARDS PLAN OF CARE DC GOALS.
[2020-12-13 07:39] VITALS: BP 139/90
[2020-12-13] MEDS ORDERED: KEFLEX250 MG PO (09:11)
[2020-12-13] MEDS ORDERED: LANTUS SUBQ (09:12)
[2020-12-13] MEDS ORDERED: HUMALOG100 UNIT/1 SUBQ (09:13)
[2020-12-13 11:00] VITALS: BP 139/90
--- NOTE | 2020-12-13 12:32 | NUR ---
Assumed pt care at 7am.Pt in and out of room in hallways independently. Assessment completed.vss.Pt tolerated meds and diet.Dr Motta here. dc order noted.Wound picture taken and placed in chart.Dc summary reviewed with pt. Saline lock dc'd prior to pt dc home at 1230 ambulatory accompanied by
--- NOTE | 2020-12-14 14:36 | NUR ---
YONIS RECEIVED A CALL ON 12/14 FROM CONOR TEIXEIRA [facility] WHO WORKS IN COLLABORATION WITH PATIENTS INSURANCE TO HELP ASSIST WITH FOLLOW UP CARE AND SHE WAS REQUESTING INFORMATION REGARDING DISCHARGE PLAN FOR PATIENT. YONIS CONTACTED CONOR [phone] TO NOTIFY HER THAT PATIENT DISCHARGED ON 12/[address] [facility]. YONIS CONTACTED [facility] TO MAKE SURE THEY RECEIVED ORDERS YESTERDAY DUE TO HOLIDAY WEEKEND AND THEY STATED THEY HAD NOT. YONIS FAXED ORDERS TO [facility] AND CONFIRMED THEY RECEIVED IT. YONIS NOTIFIED CONOR AT [facility]. NO FURTHER NEEDS AT THIS TIME.
--- NOTE | 2020-12-14 22:02 | HC ---
[facility] [place] [address] [place] [address] CONSULTATION Name: TOD RODRIGUEZ Room #: 438-P [facility] IN M.R.#: [id number] Admission: 12/09/20 Attend Phys: Norberto Dawson MD, Discharge: 12/13/20 Date of : 79 Report #: [id number] THIS REPORT FOR: cc: Jose Garcia James A. DO Geha, Daniel J. MD ~ DOC #: [id number] Flaquito Chacon MD DATE OF SERVICE: 12/10/2020 REASON FOR CONSULTATION: I was asked to evaluate concerning fever and leukocytosis. HISTORY OF PRESENT ILLNESS: The patient is a 45-year-old with fairly advanced hidradenitis suppurativa. He has had extensive surgical debridement of his posterior pelvis soft tissues; this was performed in September. He continues with wound care and a wound VAC. He completed his course of antibiotics. He was coming back in for skin grafting. He has already had a diverting colostomy. He has controlled his urine output. His blood glucose control, however, has not been good. He also has lower extremity wounds, which have been draining a fair amount as well. He denies any cough or sputum production. No nausea, vomiting or diarrhea. His diverting colostomy has prolapsed a fair amount. No dysuria, frequency, back or flank pain. Again, a fair amount of drainage from his lower extremities. REVIEW OF SYSTEMS: Fourteen-point review of systems was negative other than what has been described above. ALLERGIES: None known. MEDICATIONS: As noted on his SEP, now on vancomycin and cefepime. PAST MEDICAL HISTORY: Unchanged from his previous consultation by Dr. Velez. Most notable is diabetes, hidradenitis, left total knee arthroplasty and hypertension. FAMILY HISTORY: Noncontributory. SOCIAL HISTORY: He is a smoker of cigarettes, having quit less than a year. PHYSICAL EXAMINATION: VITAL SIGNS: He was afebrile and hemodynamically stable. GENERAL: He was alert and cooperative and pleasant, in no acute distress. He was ambulatory. He was of normal weight. SKIN: With 2 wounds involving the lower extremities, both of which were draining a moderate amount of purulent material. Minimal surrounding erythema. [facility] [address] [place] [address] CONSULTATION Name: TOD RODRIGUEZ Room #: 438-P [facility] IN M.R.#: [id number] Admission: 12/09/20 Attend Phys: Norberto Dawson MD, Discharge: 12/13/20 Date of : 79 Report #: [id number] There was some suggestion from previous evaluation that this may be pyoderma gangrinosum. I have not seen tissue confirmation of such. No palpable adenopathy. HEENT: Eyes without scleral icterus. Mouth without mucositis. NECK: Supple. LUNGS: Clear to auscultation anteriorly with few crackles in the posterior bases. HEART: Regular without murmur, gallop or rub. ABDOMEN: Soft, nontender. No hepatosplenomegaly or mass. GENITAL AND RECTAL: Examination not performed. EXTREMITIES: With no significant peripheral edema or cyanosis. NEUROLOGIC: Cranial nerves were intact. His mood was normal. BACK: Nontender with no CVA tenderness. LABORATORY DATA: Reviewed, noting hemoglobin of 10.2. Initial white count was 19, now 15.6. Creatinine 2.1. Liver function tests normal. Blood cultures are pending. COVID screening negative. IMAGING: Chest x-ray, interstitial infiltrates bilaterally. ASSESSMENT: The patient with advanced hidradenitis suppurativa with large open wounds as well as wounds to both lower extremities, with purulent drainage from the lower legs; presents with fever, leukocytosis, acute kidney injury. This is in the setting of diabetes, hypertension. RECOMMENDATIONS: We will continue IV antibiotic therapy. Obtain cultures of his lower extremity wounds, await blood culture results, continue local wound care and defer skin grafting until infection is under control. We will follow his chest x-ray as well. Flaquito Chacon MD DJG <ELECTRONICALLY SIGNED> By: Flaquito Chacon MD 12/14/20 [id number] Flaquito Chacon MD /nt
== END 2020-12-13 12:30 | disposition home health service (06) | DRG 871 ==
LOC: OR 10:23 → 4S 16:00 → OR 16:29 → 4S 16:30 → OR 18:13 → 4S 12-12 15:57
PROVIDERS: Nurse Practitioner Family; Specialist; Surgery; ADMIT Hospitalist; ATTEND Surgery
DX: A41.9 Sepsis, unspecified organism (principal); J18.9 Pneumonia, unspecified organism; L97.929 Non-pressure chronic ulcer of unspecified part of left lower leg with unspecified severity; L97.919 Non-pressure chronic ulcer of unspecified part of right lower leg with unspecified severity; N17.9 Acute kidney failure, unspecified; E46 Unspecified protein-calorie malnutrition; L03.116 Cellulitis of left lower limb; I13.0 Hypertensive heart and chronic kidney disease with heart failure and stage 1 through stage 4 chronic kidney disease, or unspecified chronic kidney disease; I50.9 Heart failure, unspecified; E10.22 Type 1 diabetes mellitus with diabetic chronic kidney disease; L73.2 Hidradenitis suppurativa; Z96.652 Presence of left artificial knee joint; I87.8 Other specified disorders of veins; L30.9 Dermatitis, unspecified; N18.9 Chronic kidney disease, unspecified; S91.002A Unspecified open wound, left ankle, initial encounter; Z20.822 Contact with and (suspected) exposure to COVID-19; X58.XXXA Exposure to other specified factors, initial encounter; Y93.89 Activity, other specified; Y92.89 Other specified places as the place of occurrence of the external cause; Y99.8 Other external cause status; Z79.4 Long term (current) use of insulin; Z87.01 Personal history of pneumonia (recurrent); Z93.3 Colostomy status; Z87.891 Personal history of nicotine dependence; Z68.27 Body mass index [BMI] 27.0-27.9, adult
CPT/HCPCS: 10102; 50010

== ENCOUNTER → 2020-12-16 | Outpatient (CLI) | payer OTHER ==
[~2020-12-16] MED LIST changes: +FREESTYLE LIBR1 EAC2 MISCELL; +KEFLEX250 MG PO
== END ==
LOC: HYPER 07:55
PROVIDERS: ATTEND Emergency Medicine
DX: T81.30XD Disruption of wound, unspecified, subsequent encounter (principal); E11.622 Type 2 diabetes mellitus with other skin ulcer; L97.312 Non-pressure chronic ulcer of right ankle with fat layer exposed; L97.322 Non-pressure chronic ulcer of left ankle with fat layer exposed; L98.412 Non-pressure chronic ulcer of buttock with fat layer exposed; L73.2 Hidradenitis suppurativa; E11.40 Type 2 diabetes mellitus with diabetic neuropathy, unspecified; I50.9 Heart failure, unspecified; J44.9 Chronic obstructive pulmonary disease, unspecified; Z87.01 Personal history of pneumonia (recurrent); Z87.891 Personal history of nicotine dependence; Z79.4 Long term (current) use of insulin; Z79.82 Long term (current) use of aspirin; Z79.899 Other long term (current) drug therapy; Y83.8 Other surgical procedures as the cause of abnormal reaction of the patient, or of later complication, without mention of misadventure at the time of the procedure

== ENCOUNTER → 2020-12-21 | Outpatient (CLI) | payer OTHER | LOC: HYPER 08:00 | PROVIDERS: ATTEND Emergency Medicine | DX: T81.31XD Disruption of external operation (surgical) wound, not elsewhere classified, subsequent encounter (principal); E11.622 Type 2 diabetes mellitus with other skin ulcer; L97.312 Non-pressure chronic ulcer of right ankle with fat layer exposed; L97.322 Non-pressure chronic ulcer of left ankle with fat layer exposed; L98.412 Non-pressure chronic ulcer of buttock with fat layer exposed; L73.2 Hidradenitis suppurativa; E11.40 Type 2 diabetes mellitus with diabetic neuropathy, unspecified; I50.9 Heart failure, unspecified; J44.9 Chronic obstructive pulmonary disease, unspecified; Z87.01 Personal history of pneumonia (recurrent); Z87.891 Personal history of nicotine dependence; Z79.4 Long term (current) use of insulin; Z79.82 Long term (current) use of aspirin; Z79.899 Other long term (current) drug therapy; Y83.8 Other surgical procedures as the cause of abnormal reaction of the patient, or of later complication, without mention of misadventure at the time of the procedure ==

== ENCOUNTER → 2020-12-29 | Outpatient (CLI) | payer OTHER | LOC: HYPER 07:47 | PROVIDERS: ATTEND Emergency Medicine | DX: T81.31XD Disruption of external operation (surgical) wound, not elsewhere classified, subsequent encounter (principal); E11.622 Type 2 diabetes mellitus with other skin ulcer; L97.312 Non-pressure chronic ulcer of right ankle with fat layer exposed; L97.322 Non-pressure chronic ulcer of left ankle with fat layer exposed; L98.412 Non-pressure chronic ulcer of buttock with fat layer exposed; L73.2 Hidradenitis suppurativa; E11.40 Type 2 diabetes mellitus with diabetic neuropathy, unspecified; I50.9 Heart failure, unspecified; J44.9 Chronic obstructive pulmonary disease, unspecified; Z87.01 Personal history of pneumonia (recurrent); Z87.891 Personal history of nicotine dependence; Z79.4 Long term (current) use of insulin; Z79.82 Long term (current) use of aspirin; Y83.8 Other surgical procedures as the cause of abnormal reaction of the patient, or of later complication, without mention of misadventure at the time of the procedure ==

== ENCOUNTER → 2021-01-04 | Outpatient (CLI) | payer OTHER | LOC: HYPER 08:58 | PROVIDERS: ATTEND Emergency Medicine | DX: T81.31XD Disruption of external operation (surgical) wound, not elsewhere classified, subsequent encounter (principal); E11.622 Type 2 diabetes mellitus with other skin ulcer; L97.312 Non-pressure chronic ulcer of right ankle with fat layer exposed; L97.322 Non-pressure chronic ulcer of left ankle with fat layer exposed; L98.412 Non-pressure chronic ulcer of buttock with fat layer exposed; L73.2 Hidradenitis suppurativa; E11.40 Type 2 diabetes mellitus with diabetic neuropathy, unspecified; I50.9 Heart failure, unspecified; J44.9 Chronic obstructive pulmonary disease, unspecified; Z87.01 Personal history of pneumonia (recurrent); Z87.891 Personal history of nicotine dependence; Z79.4 Long term (current) use of insulin; Z79.82 Long term (current) use of aspirin; Y83.8 Other surgical procedures as the cause of abnormal reaction of the patient, or of later complication, without mention of misadventure at the time of the procedure ==

== ENCOUNTER → 2021-01-11 | Outpatient (CLI) | payer OTHER | LOC: HYPER 08:43 | PROVIDERS: ATTEND Emergency Medicine | DX: T81.31XD Disruption of external operation (surgical) wound, not elsewhere classified, subsequent encounter (principal); E11.622 Type 2 diabetes mellitus with other skin ulcer; L97.312 Non-pressure chronic ulcer of right ankle with fat layer exposed; L97.322 Non-pressure chronic ulcer of left ankle with fat layer exposed; L98.412 Non-pressure chronic ulcer of buttock with fat layer exposed; L73.2 Hidradenitis suppurativa; L08.0 Pyoderma; E11.40 Type 2 diabetes mellitus with diabetic neuropathy, unspecified; E43 Unspecified severe protein-calorie malnutrition; I50.9 Heart failure, unspecified; I42.9 Cardiomyopathy, unspecified; J44.9 Chronic obstructive pulmonary disease, unspecified; F17.210 Nicotine dependence, cigarettes, uncomplicated; Z87.01 Personal history of pneumonia (recurrent); Z79.4 Long term (current) use of insulin; Z79.82 Long term (current) use of aspirin; Y83.8 Other surgical procedures as the cause of abnormal reaction of the patient, or of later complication, without mention of misadventure at the time of the procedure ==

== ENCOUNTER → 2021-01-18 | Outpatient (CLI) | payer OTHER | LOC: HYPER 08:45 | PROVIDERS: ATTEND Emergency Medicine | DX: T81.31XD Disruption of external operation (surgical) wound, not elsewhere classified, subsequent encounter (principal); E11.622 Type 2 diabetes mellitus with other skin ulcer; L97.312 Non-pressure chronic ulcer of right ankle with fat layer exposed; L97.322 Non-pressure chronic ulcer of left ankle with fat layer exposed; L98.412 Non-pressure chronic ulcer of buttock with fat layer exposed; L73.2 Hidradenitis suppurativa; L08.0 Pyoderma; E11.40 Type 2 diabetes mellitus with diabetic neuropathy, unspecified; E43 Unspecified severe protein-calorie malnutrition; I50.9 Heart failure, unspecified; I42.9 Cardiomyopathy, unspecified; J44.9 Chronic obstructive pulmonary disease, unspecified; F17.210 Nicotine dependence, cigarettes, uncomplicated; Z87.01 Personal history of pneumonia (recurrent); Z79.4 Long term (current) use of insulin; Z79.82 Long term (current) use of aspirin; Y83.8 Other surgical procedures as the cause of abnormal reaction of the patient, or of later complication, without mention of misadventure at the time of the procedure ==

== ENCOUNTER → 2021-02-03 | Outpatient (CLI) | payer OTHER | LOC: HYPER 08:26 | PROVIDERS: ATTEND Emergency Medicine | DX: T81.31XD Disruption of external operation (surgical) wound, not elsewhere classified, subsequent encounter (principal); E11.622 Type 2 diabetes mellitus with other skin ulcer; L97.312 Non-pressure chronic ulcer of right ankle with fat layer exposed; L97.322 Non-pressure chronic ulcer of left ankle with fat layer exposed; L98.412 Non-pressure chronic ulcer of buttock with fat layer exposed; L73.2 Hidradenitis suppurativa; L08.0 Pyoderma; E11.40 Type 2 diabetes mellitus with diabetic neuropathy, unspecified; E43 Unspecified severe protein-calorie malnutrition; I50.9 Heart failure, unspecified; I42.9 Cardiomyopathy, unspecified; J44.9 Chronic obstructive pulmonary disease, unspecified; F17.210 Nicotine dependence, cigarettes, uncomplicated; Z87.01 Personal history of pneumonia (recurrent); Z79.4 Long term (current) use of insulin; Z79.82 Long term (current) use of aspirin; Y83.8 Other surgical procedures as the cause of abnormal reaction of the patient, or of later complication, without mention of misadventure at the time of the procedure ==

== ENCOUNTER → 2021-02-10 | Outpatient (CLI) | payer OTHER | LOC: HYPER 08:26 | PROVIDERS: ATTEND Emergency Medicine Emergency Medical Services | DX: T81.31XD Disruption of external operation (surgical) wound, not elsewhere classified, subsequent encounter (principal); E11.622 Type 2 diabetes mellitus with other skin ulcer; L97.312 Non-pressure chronic ulcer of right ankle with fat layer exposed; L97.322 Non-pressure chronic ulcer of left ankle with fat layer exposed; L98.412 Non-pressure chronic ulcer of buttock with fat layer exposed; L73.2 Hidradenitis suppurativa; L08.0 Pyoderma; E11.40 Type 2 diabetes mellitus with diabetic neuropathy, unspecified; E43 Unspecified severe protein-calorie malnutrition; I50.9 Heart failure, unspecified; I42.9 Cardiomyopathy, unspecified; J44.9 Chronic obstructive pulmonary disease, unspecified; F17.210 Nicotine dependence, cigarettes, uncomplicated; Z87.01 Personal history of pneumonia (recurrent); Z79.4 Long term (current) use of insulin; Z79.82 Long term (current) use of aspirin; Y83.8 Other surgical procedures as the cause of abnormal reaction of the patient, or of later complication, without mention of misadventure at the time of the procedure ==

== ENCOUNTER → 2021-02-21 | Outpatient (CLI) | payer OTHER | LOC: HYPER 09:15 | PROVIDERS: ATTEND Emergency Medicine | DX: T81.31XD Disruption of external operation (surgical) wound, not elsewhere classified, subsequent encounter (principal); E11.622 Type 2 diabetes mellitus with other skin ulcer; L97.322 Non-pressure chronic ulcer of left ankle with fat layer exposed; L98.412 Non-pressure chronic ulcer of buttock with fat layer exposed; L73.2 Hidradenitis suppurativa; L08.0 Pyoderma; E11.40 Type 2 diabetes mellitus with diabetic neuropathy, unspecified; E43 Unspecified severe protein-calorie malnutrition; I50.9 Heart failure, unspecified; I42.9 Cardiomyopathy, unspecified; J44.9 Chronic obstructive pulmonary disease, unspecified; F17.210 Nicotine dependence, cigarettes, uncomplicated; Z87.01 Personal history of pneumonia (recurrent); Z79.4 Long term (current) use of insulin; Y83.8 Other surgical procedures as the cause of abnormal reaction of the patient, or of later complication, without mention of misadventure at the time of the procedure ==

== ENCOUNTER → 2021-03-07 | Outpatient (CLI) | payer OTHER | LOC: HYPER 10:45 | PROVIDERS: ATTEND Emergency Medicine Emergency Medical Services | DX: T81.31XD Disruption of external operation (surgical) wound, not elsewhere classified, subsequent encounter (principal); E11.622 Type 2 diabetes mellitus with other skin ulcer; L97.322 Non-pressure chronic ulcer of left ankle with fat layer exposed; L98.412 Non-pressure chronic ulcer of buttock with fat layer exposed; L73.2 Hidradenitis suppurativa; L08.0 Pyoderma; E11.40 Type 2 diabetes mellitus with diabetic neuropathy, unspecified; E43 Unspecified severe protein-calorie malnutrition; I50.9 Heart failure, unspecified; I42.9 Cardiomyopathy, unspecified; J44.9 Chronic obstructive pulmonary disease, unspecified; F17.210 Nicotine dependence, cigarettes, uncomplicated; Z87.01 Personal history of pneumonia (recurrent); Z79.4 Long term (current) use of insulin; Y83.8 Other surgical procedures as the cause of abnormal reaction of the patient, or of later complication, without mention of misadventure at the time of the procedure ==

== ENCOUNTER → 2021-03-22 | Outpatient (CLI) | payer OTHER | LOC: HYPER 08:20 | PROVIDERS: ATTEND Emergency Medicine | DX: T81.31XD Disruption of external operation (surgical) wound, not elsewhere classified, subsequent encounter (principal); E11.622 Type 2 diabetes mellitus with other skin ulcer; L97.322 Non-pressure chronic ulcer of left ankle with fat layer exposed; L98.412 Non-pressure chronic ulcer of buttock with fat layer exposed; L73.2 Hidradenitis suppurativa; L08.0 Pyoderma; E11.40 Type 2 diabetes mellitus with diabetic neuropathy, unspecified; E43 Unspecified severe protein-calorie malnutrition; I50.9 Heart failure, unspecified; I42.9 Cardiomyopathy, unspecified; J44.9 Chronic obstructive pulmonary disease, unspecified; F17.210 Nicotine dependence, cigarettes, uncomplicated; Z87.01 Personal history of pneumonia (recurrent); Z79.4 Long term (current) use of insulin; Y83.8 Other surgical procedures as the cause of abnormal reaction of the patient, or of later complication, without mention of misadventure at the time of the procedure ==

== ENCOUNTER → 2021-04-06 | Outpatient (CLI) | payer OTHER | LOC: HYPER 09:18 | PROVIDERS: ATTEND Emergency Medicine | DX: T81.31XD Disruption of external operation (surgical) wound, not elsewhere classified, subsequent encounter (principal); E11.622 Type 2 diabetes mellitus with other skin ulcer; L97.322 Non-pressure chronic ulcer of left ankle with fat layer exposed; L98.412 Non-pressure chronic ulcer of buttock with fat layer exposed; L73.2 Hidradenitis suppurativa; L08.0 Pyoderma; E11.40 Type 2 diabetes mellitus with diabetic neuropathy, unspecified; E43 Unspecified severe protein-calorie malnutrition; I50.9 Heart failure, unspecified; I42.9 Cardiomyopathy, unspecified; J44.9 Chronic obstructive pulmonary disease, unspecified; F17.210 Nicotine dependence, cigarettes, uncomplicated; Z87.01 Personal history of pneumonia (recurrent); Z79.4 Long term (current) use of insulin; Y83.8 Other surgical procedures as the cause of abnormal reaction of the patient, or of later complication, without mention of misadventure at the time of the procedure ==

== ENCOUNTER 2021-04-15 07:20 | Inpatient (IN) | payer OTHER ==
[2021-04-15] VITALS (9 sets, daily range): BP systolic 137–159; BP diastolic 85–99
[~2021-04-15] VITALS: Ht 180.3 cm; Wt 83.9 kg
--- NOTE | ~2021-04-15 | O ---
[facility] [place] [address] OPERATIVE REPORT Name: TOD RODRIGUEZ Room #: 439-[facility] IN M.R.#: [id number] Admission: 04/15/21 Attend Phys: Norberto Dawson MD, Discharge: 04/16/21 Date of : 79 Report #: [id number] THIS REPORT FOR: cc: Jose Garcia James A. DO Soliman,Norberto Lo MD FACS ~ DATE OF SERVICE: 04/15/2021 PREOPERATIVE DIAGNOSES: 1. Prolapsed loop transverse colostomy. 2. Parastomal hernia. 3. Healed sacrogluteal hidradenitis wounds with desire for ostomy reversal. POSTOPERATIVE DIAGNOSES: Prolapsed loop transverse colostomy. 2. Parastomal hernia. 3. Healed sacrogluteal hidradenitis wounds with desire for ostomy reversal. PROCEDURE PERFORMED: 1. Colostomy reversal with partial colectomy and stapled reanastomosis. 2. Primary suture repair of a parastomal hernia. SURGEON: Norberto Dawson MD ELEMENTARY SCHOOL SCIENCE TEACHER: Pricila Coffman__SHELLIE. ANESTHESIA: General endotracheal anesthesia. ESTIMATED BLOOD LOSS: Minimal (less than 10 mL). COMPLICATIONS: None appreciated. SPECIMENS: A segment of colon to pathology. INDICATIONS: The patient is a 45-year-old -[place] male with a history of severe bilateral gluteal hidradenitis suppurativa that encased his entire buttocks and down to the perianal tissues. After thorough consultation with the patient and the wound care service. The patient elected to proceed with excision of his wounds with a diverting colostomy as a protective measure. 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 Luckily, his ostomy stayed functional and now that his wounds have healed, he presents today for colostomy reversal. DESCRIPTION OF PROCEDURE: After explaining the risks, benefits and alternatives [facility] [address] [place] [address] OPERATIVE REPORT Name: TOD RODRIGUEZ Room #: 439-P DIS IN M.R.#: [id number] Admission: 04/15/21 Attend Phys: Norberto Dawson MD, Discharge: 04/16/21 Date of : 79 Report #: [id number] of the procedure with the patient in detail in preoperative holding area and obtaining consent, the patient was brought to the operating room and placed supine on the operating room table. After conducting a thorough timeout procedure, verifying correct patient and procedure, the patient was given general endotracheal anesthesia. Once adequate anesthesia was obtained, his SCDs were hooked up to pneumatic compression device. He was given a preoperative dose of antibiotics in line with the SCIP protocol. Each barrel of the loop colostomy was now sutured closed using 2-0 silk in standard pursestring fashion and then the abdomen was prepped and draped in the standard surgical sterile fashion. Electrocautery was used to circumferentially excise the mucocutaneous juncture. I was able to place a finger through the subcutaneous tissue into the abdomen as he had a moderate-sized parastomal hernia and proceeded to continue freeing the bowel from its fascial attachments. This was done using electrocautery for hemostasis until I could deliver the entire colon through the wound. A window was made in the mesentery on the proximal side of the loop colostomy and was done so using electrocautery for hemostasis. The bowel was transected at this location using a BRAULIO blue load 75 mm stapler. A single suture of 3-0 PDS was placed on the antimesenteric aspect of the bowel and used as a tag to maintain control of the bowel. We now turned our attention to the distal aspect. There was quite a bit of bowel prolapsed with no discernible splenic flexure being attached. This bowel was thickened and woody due to its chronically prolapsed appearance and as such, I was able to use a Bovie heavy forger and dissect along the white line of Toldt on the left side. This allowed me to deliver healthy bowel into the bed of the wound, at which location, a window was made in the mesentery using electrocautery. Again, this was transected using another firing of the blue load 75 mm stapler. The EnSeal X1 advanced energy device was now used to transect mesentery for complete hemostasis and the colostomy was then passed off the field. We were luckily able to approximate the proximal transverse colon with the descending colon on the left where they were held in alignment with a single suture of 3-0 PDS in a [id number] functional end-to-end fashion. Small colotomies were made using curved Wilson scissors and another firing of the blue load 75 mm BRAULIO stapler was carried out to create the anastomosis by placing each limb of the stapler down the enterotomies clamping and firing. Allis clamps were used to elevate the common enterotomy, which was then closed with a TX blue load 60 stapler. A single suture of 3-0 PDS was placed in the crotch of the staple line to act as an anti-tension stitch. Digital finger palpation of the anastomosis showed it to be widely patent. We had complete hemostasis. I now turned my attention to closure of the abdominal wound. The wound edges were freshened up with electrocautery and I proceeded to close this using #1 PDS suture in standard running fashion. Small skin flaps were made with electrocautery to allow the skin to be brought together without tension and this was done so using Vicryl in interrupted inverted fashion for the dermis as well as skin ragini for skin. The wound was then dressed with 4 x 4's, ABDs, and Medipore tape completing the procedure. At the end of the procedure, all instrument, needle and sponge [address] [address] OPERATIVE REPORT Name: TOD RODRIGUEZ Room #: 439-[facility] IN M.R.#: [id number] Admission: 04/15/21 Attend Phys: Norberto Dawson MD, Discharge: 04/16/21 Date of : 79 Report #: [id number] counts were correct. The patient tolerated the procedure without incident, was awakened in the operating room and transitioned to the recovery room in stable condition with no apparent complications. By: 0827 [id number] Norberto Dawson MD, FACS /nt
[~2021-04-15 07:20] MED LIST changes: +LEVEMIR100 UNIT/1 PO
[2021-04-15 07:57] LABS: CALCIUM 8.5 mg/dL (8.5-10.1); POTASSIUM 4.2 mmol/L (3.5-5.1)
--- NOTE | 2021-04-15 17:55 | NUR ---
Pt transferred to unit from PACU. Pt a&ox4. Dressing c/d/i. Pain controlled. Hospitalist consulted. Pt tolerating diet well. Pt ambulated with steady gait. Call light within reach. Will continue to monitor.
[2021-04-16 04:24] LABS: CALCIUM 8.2 mg/dL (8.5-10.1); CREATININE 1.7 mg/dL (0.7-1.3)
[2021-04-16 04:27] LABS: POTASSIUM 5.2 mmol/L (3.5-5.1)
[2021-04-16 04:36] LABS: HEMATOCRIT 34.3 % (42.0-52.0); HEMOGLOBIN 10.4 gm/dL (14.0-18.0); MCH 21.9 pg (26.0-34.0); MCHC 30.4 g/dL (28.0-37.0); MCV 72.2 fL (80.0-100.0); RBC 4.76 mil/uL (4.50-6.00); RDW 18.8 % (10.5-14.5); WBC 21.3 thou/uL (4.0-11.0)
--- NOTE | 2021-04-16 05:17 | NUR ---
ASSUMED CARE AT 1900, PT A & OX4, UP AD KONSTANTIN, PT HAS BEEN UP ALL NIGHT, DRINKING COFFEE, COMPLIANT WITH TX, NO ADVERSE REACTION, REPORTS NO PAIN OR DISCOMFORT, 2035 BLOOD SUGAR WAS 478, ASYMPTOMATIC. ACTIVE DIRECTORY SPECIALIST SENIOR MARKETING MANAGER NOTIFIED NEW ORDER RECEIVED TO REPEAT BLOOD SUGAR CHECK. AT [phone], NOTIFIED ACTIVE DIRECTORY SPECIALIST SENIOR MARKETING MANAGER NO NEW ORDERS AT THIS TIME. PT HAS SCHEDULED SLIDING SCALE INSULIN. WILL CONTINUE TO MONITOR PT.
[2021-04-16 08:15] VITALS: BP 147/87
--- NOTE | 2021-04-16 09:16 | NUR ---
Assumed care of pt at 0700. Pain controlled. Dressing c/d/i. Possible d/c to home today after provider rounds on patient. Pt ambulating in the reis. Pt calls appropriatelly. Will continue to monitor.
[2021-04-16] MEDS ORDERED: HYDROCODON-ACE1 EAC7 PO (12:16)
[2021-04-16 12:20] VITALS: BP 147/87
--- NOTE | 2021-04-19 17:07 | PATH ---
[facility] [address] [address] PATHOLOGY RPT PROCEDURE Name: TOD RODRIGUEZ Room #: 439-[facility] IN M.R.#: [id number] Admission: 04/15/21 Date of : 79 Discharge: 04/16/21 Report #: [id number] Path Case #: [id number] [facility] Accession Number: [id number] . 01 Material submitted: . PART A: colon - OMENTUM PART B: colon - LOOP TRANSVERSE COLON . 01 Clinical history: . COLOSTOMY IN PLACE . 02 Diagnosis: A. Fibroadipose tissue, omentum, omentectomy: - Unremarkable fibroadipose tissue. - Negative for malignancy. . B. Skin, colon, and lymph nodes (2), loop transverse colon, resection: - Large bowel and skin with active colitis at the colostomy site with moderate acute inflammation. - Negative for dysplasia and malignancy. - Two lymph nodes negative for malignancy (0/2). (SCA:dion; 04/18/2021) QMS 04/19/2021 1604 Local . 02 Electronically signed: . Kenrick Hickey DO, Pathologist NPI- [id number] . 01 Gross description: . A. Received in formalin labeled "Tod Rodriguez, omentum" is a portion of yellow-hatfield lobulated omentum measuring 38.7 x 14.7 x 1.8 cm. The specimen is palpated and sectioned to reveal focal fibrotic areas and no masses. Exercise Equipment Repair Technician tissue is submitted in cassette A1. . B. Received in formalin labeled "Tod Rodriguez, loop transverse colon" is an unoriented segment of colon measuring 24.5 cm in length and 4.2 cm in diameter. There is a moderate amount of mesenteric fat measuring 15.5 x 4.7 x 2.3 cm and an attached portion of omentum measuring 11.5 x 6.0 x 3.1 cm. The resection margins are closed with staple lines. The serosa is pink-hatfield and focally fibrotic with a full thickness defect consistent with colostomy site in the mid specimen measuring 6.0 x 3.0 x 0.7 cm. The colostomy site displays a thin rim of gonsalez-brown skin. The specimen is opened to reveal hatfield-brown mucosa which is slightly flattened and granular throughout the mid specimen and surrounding the colostomy site. The mucosa adjacent to the staple line margins appears hatfield-brown with unremarkable folding. Focal hemorrhage is present. No masses are grossly identified. The mesenteric fat is palpated to reveal [address] [address] PATHOLOGY RPT PROCEDURE Name: TOD RODRIGUEZ Room #: 439-P DIS IN M.R.#: [id number] Admission: 04/15/21 Date of : 79 Discharge: 04/16/21 Report #: [id number] Path Case #: [id number] measuring 0.6 and 0.8 cm in greatest dimension. Exercise Equipment Repair Technician sections of the specimen are submitted as follows: B1-B2 staple line margins B3 key account representative colostomy B4 additional bowel wall from mid specimen B5 transition from flattened to unremarkable mucosa B6 lymph nodes, submitted without sectioning ([facility]; 04/16/2021) [facility] 04/16/2021 1114 Local . 02 Pathologist provided ICD-10: K52.9 . 02 CPT . 885187, 102643 Specimen Comment: A courtesy copy of this report has been sent to [phone] Specimen Comment: Report sent to Performed at: 01 [facility] [address] [id number] MD Mauricio Perez MD Phone: [phone] Performed at: 02 [facility] [place] [address] [address] [id number] MD Yash Echols MD Phone: [phone]
== END 2021-04-16 12:53 | disposition home or self-care (01) | DRG 331 ==
LOC: TBA 07:20 → EDSTATUS 10:03 → PRE 10:22 → OR 11:42 → PRE 12:02 → 4S 12:39
PROVIDERS: ADMIT Surgery; ATTEND Surgery
PROC: 0DBL0ZZ Excision of Transverse Colon, Open Approach (ICD-10-PCS; principal; 2021-04-15)
PROC: 0WQF0ZZ Repair Abdominal Wall, Open Approach (ICD-10-PCS; principal; 2021-04-15)
DX: K43.5 Parastomal hernia without obstruction or gangrene (principal); L73.2 Hidradenitis suppurativa; E11.9 Type 2 diabetes mellitus without complications; I50.9 Heart failure, unspecified; Z20.822 Contact with and (suspected) exposure to COVID-19; I11.0 Hypertensive heart disease with heart failure; Z96.652 Presence of left artificial knee joint; Z79.4 Long term (current) use of insulin; Z79.899 Other long term (current) drug therapy
CPT/HCPCS: 10102; 50010; 50093; 50101; 50386; 51412; 51708; 51712; 56524; 56525; 56527; 57092; 62110; 62900; 70005

== ENCOUNTER → 2021-04-25 | Outpatient (CLI) | payer OTHER ==
[~2021-04-25] MED LIST changes: +HYDROCODON-ACE1 EAC7 PO
== END ==
LOC: HYPER 04-14 09:55
PROVIDERS: ATTEND Emergency Medicine
DX: T81.89XD Other complications of procedures, not elsewhere classified, subsequent encounter (principal); E11.622 Type 2 diabetes mellitus with other skin ulcer; L98.412 Non-pressure chronic ulcer of buttock with fat layer exposed; L73.2 Hidradenitis suppurativa; E11.40 Type 2 diabetes mellitus with diabetic neuropathy, unspecified; E43 Unspecified severe protein-calorie malnutrition; I42.9 Cardiomyopathy, unspecified; I50.9 Heart failure, unspecified; J44.9 Chronic obstructive pulmonary disease, unspecified; F17.210 Nicotine dependence, cigarettes, uncomplicated; Z87.01 Personal history of pneumonia (recurrent); Z68.27 Body mass index [BMI] 27.0-27.9, adult; Z79.4 Long term (current) use of insulin; Z79.82 Long term (current) use of aspirin; Z79.899 Other long term (current) drug therapy; Y83.8 Other surgical procedures as the cause of abnormal reaction of the patient, or of later complication, without mention of misadventure at the time of the procedure